=== PATIENT | female | born 1970 | race Caucasian/White ===

== ENCOUNTER 2017-05-20 13:35 | Outpatient (CLI) | payer OTHER | END 2017-05-20 13:36 | disposition home or self-care (01) | LOC: BICMAMMO 13:35 | PROVIDERS: ATTEND Family Medicine | DX: Z12.31 Encounter for screening mammogram for malignant neoplasm of breast (principal) | CPT/HCPCS: 77063; 77067 ==

== ENCOUNTER 2017-09-19 13:42 | Observation (INO) | payer OTHER ==
[~2017-09-19 13:42] MED LIST: ISOVUE-370 76%-LOCM 1 ML ONE
[2017-09-19 14:09] LABS: #Eosinphils 0.2 thou/uL (0.0-0.7); #Lymphocytes 1.9 thou/uL (1.20-3.40); #Monocytes 0.5 thou/uL (0.11-0.59); #Neutrophils 4.9 thou/uL (1.40-6.50); %Basophils 0.3 % (0.0-1.0); %Eosinophils 2.4 % (0.0-10.0); %Lymphocytes 25.3 % (21.0-51.0); %Monocytes 6.1 % (0.0-10.0); %Neutrophils 65.9 % (42.0-75.0); Hemoglobin 14.9 g/dL (12.0-16.0); Mean Corpuscular HGB CONC 35.7 g/dL (32.0-36.0); Mean Corpuscular Hemoglobin 32.1 pg (27.0-31.0); Mean Corpuscular Volume 89.7 fL (78.0-98.0); Mean Platelet Volume 7.6 fL (7.4-10.4); Platelet Count 178 thou/uL (130-400); RBC Distribution Width 12.3 % (11.5-14.5); Red Blood Cell (RBC) Count 4.64 mill/uL (4.20-5.40); White Blood Cell (WBC) Count 7.4 thou/uL (4.8-10.8)
[2017-09-19] MEDS ORDERED: Diltiazem HCl 125 MG, Admixture Fee 1 EACH in Sodium Chloride 0.9% 100 ML IVPB SCH (14:30)
[2017-09-19 14:31] LABS: ALT (SGPT) 19 U/L (8-55); AST (SGOT) 26 U/L (5-34); Albumin 3.9 g/dL (3.5-5.0); Alkaline Phosphatase 86 U/L (40-150); Anion Gap 13 mmol/L (10-20); BUN (Urea Nitrogen) 20 mg/dL (7.0-18.7); Bilirubin, Total 0.7 mg/dL (0.2-1.2); CK (CPK) 260 U/L (29-168); Calc. Creatinine Clearance 0 mL/min (70-130); Calcium 9.2 mg/dL (7.8-10.44); Carbon Dioxide 24 mmol/L (22-29); Chloride 104 mmol/L (98-107); Estimated GFR-MDRD 50; Globulin 3.6 g/dL (2.4-3.5); Glucose 318 mg/dL (70-105); Potassium 3.7 mmol/L (3.5-5.1); Protein, Total 7.5 g/dL (6.0-8.3); Sodium 137 mmol/L (136-145)
[2017-09-19 14:35] LABS: CKMB 2.9 ng/mL (0-6.6); Troponin I Less than 0.010 ng/mL (< 0.028)
--- NOTE | 2017-09-19 15:18 | CT ---
CTA CHEST WITH AND WITHOUT CONTRAST AND WITH 3D VOLUME RENDERING: INDICATION: Chest pain. FINDINGS: There is no evidence of a significant filling defect of the pulmonary arteries to indicate a pulmonar y embolus. There is mild patchy density of the lungs that likely related to respiratory motion artif act. No lobar consolidation, effusion, or pneumothorax. Thoracic aorta is nonaneurysmal. There is incompletely visualized incompletely assessed hypodensity at the medial right kidney. No acute osseo us abnormalities. There are scattered osseous degenerative changes. IMPRESSION: No evidence of a significant pulmonary embolus. POS: [facility]
[2017-09-19 17:22] LABS: Troponin I Less than 0.010 ng/mL (< 0.028)
[2017-09-19] MEDS ORDERED: Dextrose 5% in Water 1,000 ML IV PRN (17:35)
[2017-09-19] MEDS ORDERED: HumaLOG 300 UNITS/3 ML VIAL SC PRN (17:35)
[2017-09-19] MEDS ORDERED: Insulin Regular 300 UNITS/3 ML VIAL SC PRN (17:35)
[2017-09-19] MEDS ORDERED: Dextrose 50% Abboject 50 ML SYRINGE SLOW IVP PRN (17:35)
[2017-09-19 18:36] VITALS: BMI 48.2
[2017-09-19] MEDS: Sodium Chloride 0.9% 1,000 ML IV SCH (19:36)
[2017-09-19 20:29] LABS: Troponin I Less than 0.010 ng/mL (< 0.028)
[2017-09-19] MEDS: Metoprolol Tartrate 25 MG TAB PO SCH (20:33)
--- NOTE | 2017-09-19 20:56 | HP ---
DATE OF SERVICE: 09/19/2017 PRIMARY CARE PHYSICIAN: Lianna Dean MD CHIEF COMPLAINT: Palpitations. HISTORY OF PRESENT ILLNESS: This is a 46-year-old female with history of hypertension, who presents to the emergency room with palpitations. She reports after waking up at 7 this morning that her heart rate was high, measured at 137. She denies any prior history of this, denies any precipitates , and states that her heart was beating both fast and hard. She denies being short of breath, nauseous, or vomiting. Reports she took her usual dose of losartan at 7 this morning. Around 11 today, her blood pressure was still high. She took a second dose of losartan. The palpitations persisted and she came here. In addition to the palpitations, the patient had a headache and took some Aleve and she reports this has resolved. She also noticed sweating when she was walking a short distance across the house earlier today. In the emergency room, initial heart rate was 143. The patient was found to be in atrial flutter. After going to the bathroom, she converted into normal sinus rhythm. Hospitalist called for admission. The patient received 325 mg of aspirin. Diltiazem was ordered for her; however, this was held as she had converted to sinus rhythm. ALLERGIES: No known drug allergies. CURRENT MEDICATIONS: Losartan 100 mg once a day. PAST MEDICAL HISTORY: Hypertension. PAST SURGICAL HISTORY: 1. Cholecystectomy. 2. Tubal ligation. SOCIAL HISTORY: She is . Denies any alcohol or tobacco. Her surrogate decision makers are her mom, , daughter, and she is a FULL CODE. FAMILY HISTORY: Significant for hypertension and dad with coronary disease. REVIEW OF SYSTEMS: Positive for headache that responded to Aleve, palpitations as noted above. Negative for shortness of breath, nausea, vomiting, any change in bowel or bladder function. All remaining review of systems are reviewed and negative. PHYSICAL EXAMINATION: VITAL SIGNS: Blood pressure 114/70, pulse 86, respirations 16, saturations 94% on room air. GENERAL: Awake, alert, responsive, in no apparent distress, able to speak in full sentences. HEENT: Pupils equal and round. Oral mucosa is pink and moist. NECK: Supple, nontender. LYMPHATICS: No palpable cervical or supraclavicular lymphadenopathy. LUNGS: Clear to auscultation bilateral. No audible wheezing, rhonchi, or rales. HEART: Normal S1, S2. Regular rate and rhythm. No audible murmurs. ABDOMEN: Soft. Present bowel sounds. Nontender, nondistended. EXTREMITIES: No clubbing, cyanosis, or edema. SKIN: No visible rashes. NEUROLOGIC: No focal deficits. PSYCHIATRIC: Euthymic, linear, logical, goal-directed thought process. LABORATORY DATA: 1. CBC: 7.4, 14.9, 41.6, 178. 2. Chemistry: 137, 3.7, 104, 24, 20,1.18 with a glucose of 318. 3. LFTs are negative. 4. CK 260, MB 2.9. Troponin x2 negative. 5. TSH 1.49. EKG is personally reviewed at 1351, atrial flutter with a rate of 125. EKG at 1512 today, normal sinus rhythm, normal axis, normal intervals, no ST changes. CT angiogram was negative for any significant PE. IMPRESSION: 1. Paroxysmal atrial flutter, now converted into sinus rhythm without intervention. 2. Elevated blood sugar, concerning for new diagnosis of diabetes. 3. Slightly elevated creatinine in a patient on an ARB with an extra dose today at home in addition to an IV contrast study. PLAN: 1. Observation status in the hospital. 2. We will start low-dose beta demond with hold parameters to manage heart rate 3. Echocardiogram and Cardiology consultation. 4. Hold her ARB. IV fluid for hydration and recheck her renal function tomorrow. 5. Check a hemoglobin A1c and a.m. fasting blood sugar. A carbohydrate consistent diet and insulin sliding scale as needed. This will need to be followed up here in the hospital as well as with her primary care provider. 6. Monitoring on telemetry. 7. We will continue the low-dose aspirin, holding full anticoagulation as the patient is clear that the episode lasted less than 24 hours. Her CHAD2-VASC score is 2 (if new diagnosis of Diabetes = score of 4). 8. Deep venous thrombosis prophylaxis is not indicated. The patient is ambulatory. 9. Gastrointestinal prophylaxis is not indicated. 10. Code status is full and surrogate decision makers are mom, daughter, and . 11. Reviewed the plan of care with the patient. No questions or further needs at end of evaluation. MARLID
[2017-09-20] MEDS: Sodium Chloride 0.9% 1,000 ML IV SCH (05:13)
[2017-09-20 05:33] LABS: Anion Gap 11 mmol/L (10-20); BUN (Urea Nitrogen) 19 mg/dL (7.0-18.7); Calc. Creatinine Clearance 177 mL/min (70-130); Calcium 8.9 mg/dL (7.8-10.44); Carbon Dioxide 29 mmol/L (22-29); Chloride 103 mmol/L (98-107); Estimated GFR-MDRD 62; Glucose 121 mg/dL (70-105); Potassium 3.8 mmol/L (3.5-5.1); Sodium 139 mmol/L (136-145)
[2017-09-20] MEDS: Metoprolol Tartrate 25 MG TAB PO SCH (07:49)
[2017-09-20] MEDS ORDERED: Aspirin 81 mg Enteric Coated Tablet PO SCH (09:00)
--- NOTE | 2017-09-20 10:11 | PDOC.EVN ---
Event Note - Event Note Event Note: pt seen & examined h&p reviewed pt no further episodes of palpitations/ discomfort exam: s1,s2, no m/r/g, pulses 2+ b/l UE, no pitting pedal edema, no carotid bruits ctab, no conversational dyspnea, no w/r/r, reasonable air mvmt +bs, soft, non ttp maee, self repositions a/p a flutter pending ECHO apprec card c/s TSH wnl,A1c wnl obesity counseled re: lifestyle modifications dietary c/s elev Cr - resolved s/p hydration activity: as erica dvt ppx diet: diabetic,cardiac
--- NOTE | 2017-09-20 14:49 | CON ---
DATE OF CONSULTATION: 09/20/2017 HISTORY: Renu Myrick is a 46-year-old female who denies any previous palpitations or cardiac problems. Yesterday morning, she woke at approximately 7:00 a.m., felt her heart beating somewhat rapidly and had a headache. She notes her blood pressure was around 140/110 and her heart rate was 137. She took her blood pressure medicine and Aleve for the headache. This continued and she came to the emergency room. She states that around 3:00 p.m., this spontaneously went back to normal without any treatment being given in the emergency room. Cardizem had been ordered, but apparently was not given when she converted to sinus rhythm. She denies any shortness of breath or chest discomfort with the episode. PAST MEDICAL HISTORY: Hypertension. No history of diabetes or hypercholesterolemia. MEDICATION: Losartan 100 mg daily. ALLERGIES: None. OPERATIONS: Cholecystectomy and tubal ligation. SOCIAL HISTORY: She does not smoke or drink. FAMILY HISTORY: Mother and father as well as a sister have had myocardial infarctions. REVIEW OF SYSTEMS: Twelve-point review of systems is unremarkable except as noted above. PHYSICAL EXAMINATION: VITAL SIGNS: 121/67, pulse 71. HEENT: PERRL. NECK: Supple. LUNGS: Chest is clear. CARDIAC: S1, S2 normal without any S3, S4 or murmurs. ABDOMEN: Obese. Normal bowel sounds. No tenderness or organomegaly. EXTREMITIES: Revealed no clubbing, cyanosis or edema. NEUROLOGIC: Grossly intact. SKIN: Warm and dry. LABORATORY AND X-RAY FINDINGS: Initial EKG revealed atrial flutter with rate of 125 per minute with nonspecific ST changes. EKG after she converted revealed normal sinus rhythm. CBC is unremarkable. Sodium 139, potassium 3.8, chloride 103, carbon dioxide 29, BUN 19, creatinine 0.97. It is of note that glucose on admission was 318; however, hemoglobin A1c is 6.0. Cardiac enzymes are unremarkable. TSH is normal. IMPRESSION: 1. Atrial flutter, spontaneously converted to sinus rhythm after approximately 8 hours. 2. Hypertension. 3. Obesity. 4. Hyperglycemia. PLAN: Echocardiogram will be performed to assess left ventricular function. Electrophysiology will be consulted for consideration of radiofrequency ablation. KACEY
[2017-09-20 15:39] VITALS: BP 122/72; TEMP 97.9
--- NOTE | 2017-09-21 21:08 | CON ---
DATE OF CONSULTATION: 09/20/2017 ELECTROPHYSIOLOGY CONSULTATION REPORT REFERRING PHYSICIAN: Dr. Farley I am seeing Ms. Powell at our [facility] telemetry floor as an electrophysiology senior recruitment consultant. Her problems are: 1. Newly found persisting, but eventually staff terminated typical appearing atrial flutter with rapid ventricular rates. 2. No evidence of structural heart disease with 2D echo from 09/20/2017 reveals LVEF 50%-55%, mild left atrial enlargement, mild mitral and mild tricuspid regurgitation. 3. Coronary stenting, hypertension, and elevated BMI. ALLERGIES: None noted. MEDICATIONS: Losartan 100 mg daily. SUBJECTIVE: Mrs. Myrick is here due to sudden onset of palpitations at about 7 :00 a.m. on the day of admission. It was associated with headaches. Blood pressure was also elevated, heart rate dropped to 140 beats per minute. Pain medication improved the headache. She came to the ER and found to be in atrial flutter with rapid rates. She was ordered to have Cardizem, but she did not receive yet and she spontaneously converted back to sinus rhythm. She is maintaining normal rhythm. Her symptoms were resolved. She denies chest pains , no fever, chills, cough, no PND, orthopnea. No lower extremity edema. No stroke-like symptoms, no neurological deficits. No dizziness, loss of consciousness. Rest of twelve-point of systems otherwise unremarkable. PAST MEDICAL HISTORY: No prior history of heart disease or heart attacks. She does carry history of hypertension, taking losartan for that. No history of diabetes or hypercholesterolemia. SOCIAL HISTORY: Patient denies smoking, ETOH or drug abuse. FAMILY HISTORY: Noncontributory, although both sister and father and mother had heart attacks in the past. OBJECTIVE: VITAL SIGNS: Blood pressure is 127/78, heart rate 75, respiration is 18, temperature 97.8 degrees Fahrenheit. GENERAL: A well oriented woman in no apparent distress. NECK: Supple. Jugular veins are distended. CHEST: Coarse without crackles. CARDIOVASCULAR: Heart sounds are regular to rate and rhythm. No murmur or gallop. ABDOMEN: Benign. Bowel sounds positive. EXTREMITIES: Lower extremities without edema, clubbing or cyanosis. Pulses are adequate. NEUROLOGIC: Patient nonfocal. MUSCULOSKELETAL: No joint deformity. SKIN: Without rash. DATABASE: EKGs reviewed initially atrial flutter with rapid rate up to 140 beats per minute. Subsequent telemetry strips reveal improvement rate eventually sinus rhythm ensued narrow QRS, nonspecific ST-T changes are seen. LABORATORY DATA: White count 7.4, hemoglobin 14.9, platelet count is 178. Sodium 139, potassium 3.8, BUN is 19, creatinine 0.97. The troponin I is 0.[address] reveals no evidence of pulmonary embolus. ASSESSMENT AND PLAN: Ms. Powell is pleasant 46-year-old woman with history of hypertension, no other cardiac history. She presented with atrial flutter which based on the EKG morphology possibly typically isthmus dependent, but the episode was eventually self terminated without medication or intervention. Currently, she is maintaining regular rhythm. We discussed the mechanism of atrial flutter, potential contributing factors including hypertension, obesity. She also discussed the potential risk for stroke as such with this abnormality and her CHADS-VASc score of 2. At this point, the episode was relatively short lasting. Her BRYANT VASc score is lower. At this point, aspirin would be reasonable to continue. On the other hand, if further episodes of atrial fibrillation or flutter is seen, she might need to be continued on more potent oral anticoagulants, possibly one of the direct thrombin inhibitors. Also, it is reasonable to consider adding a heart rate lowering medication like metoprolol versus diltiazem could be considered. I would like to follow her in the office and should there be any further recurrence of atrial fibrillation or flutter, she might be a good candidate for ablation as well. At this point, she would like to continue medical therapy. I strongly advised her about the weight loss, hence obesity has a connection to recurrence of atrial fibrillation and weight loss would have reduce that. A routine follow up in the office in 6 weeks requested. Thank you again for allowing me to participate in the care of this patient. KACEY
== END 2017-09-20 16:38 | disposition home or self-care (01) ==
LOC: ERS 13:42 → 2SW 17:04 → INTOOBSV 17:04
PROVIDERS: ADMIT Family Medicine; ATTEND Family Medicine
DX: I48.92 Unspecified atrial flutter (principal); R73.9 Hyperglycemia, unspecified; E66.01 Morbid (severe) obesity due to excess calories; Z95.5 Presence of coronary angioplasty implant and graft; Z79.899 Other long term (current) drug therapy; Z68.45 Body mass index [BMI] 70 or greater, adult
CPT/HCPCS: 36415; 36416; 71275; 80048; 80053; 82550; 82553; 83036; 83880; 84443; 84484; 85025; 93005; 93306; 94760; 96360; 96361; G0378; J7050

== ENCOUNTER 2017-10-11 09:48 | Observation (INO) | payer OTHER ==
[2017-10-11] MEDS ORDERED: niCARdipine 20MG In NaCl 0 MG/0 ML BAG ONE (10:09)
[2017-10-11] MEDS ORDERED: Diltiazem 125 MG in Sodium Chloride 0.9% 100 ML IVPB SCH (10:30)
[2017-10-11] MEDS ORDERED: Fentanyl 100 MCG/2 ML VIAL ONE (10:31)
[2017-10-11 10:39] LABS: ALT (SGPT) 23 U/L (8-55); AST (SGOT) 30 U/L (5-34); Albumin 4.3 g/dL (3.5-5.0); Alkaline Phosphatase 104 U/L (40-150); Anion Gap 14 mmol/L (10-20); BUN (Urea Nitrogen) 20 mg/dL (7.0-18.7); Bilirubin, Total 1.8 mg/dL (0.2-1.2); Calc. Creatinine Clearance 0 mL/min (70-130); Calcium 9.5 mg/dL (7.8-10.44); Carbon Dioxide 23 mmol/L (22-29); Chloride 102 mmol/L (98-107); Estimated GFR-MDRD 53; Glucose 124 mg/dL (70-105); Potassium 3.6 mmol/L (3.5-5.1); Protein, Total 8.3 g/dL (6.0-8.3); Sodium 135 mmol/L (136-145)
[2017-10-11 10:44] LABS: #Eosinphils 0.1 thou/uL (0.0-0.7); #Monocytes 0.4 thou/uL (0.11-0.59); #Neutrophils 4.7 thou/uL (1.40-6.50); %Basophils 0.5 % (0.0-1.0); %Eosinophils 0.9 % (0.0-10.0); %Lymphocytes 16.4 % (21.0-51.0); %Neutrophils 76.2 % (42.0-75.0); Hemoglobin 15.5 g/dL (12.0-16.0); Mean Corpuscular HGB CONC 35.7 g/dL (32.0-36.0); Mean Corpuscular Hemoglobin 31.6 pg (27.0-31.0); Mean Corpuscular Volume 88.4 fL (78.0-98.0); Mean Platelet Volume 7.7 fL (7.4-10.4); Platelet Count 166 thou/uL (130-400); RBC Distribution Width 12.5 % (11.5-14.5); Red Blood Cell (RBC) Count 4.89 mill/uL (4.20-5.40); White Blood Cell (WBC) Count 6.1 thou/uL (4.8-10.8)
[2017-10-11 10:46] LABS: CKMB 1.5 ng/mL (0-6.6); Troponin I Less than 0.010 ng/mL (< 0.028)
[2017-10-11] MEDS ORDERED: Ondansetron HCl/PF 4 MG/2 ML Vial ONE (10:59)
--- NOTE | 2017-10-11 12:00 | RAD ---
PORTABLE UPRIGHT FRONTAL CHEST RADIOGRAPH: Date: 10-11-17 Comparison: None. History: Tachycardia with chest discomfort. FINDINGS: Cardiac silhouette is prominent. There is no pneumothorax, pleural fluid, focal consolidation, or devi eolar edema. IMPRESSION: No radiographic evidence of acute cardiopulmonary disease. POS: [facility]
[2017-10-11] MEDS ORDERED: Enoxaparin Sodium 60 MG/0.6 ML SYRINGE ONE (12:03)
[2017-10-11] MEDS ORDERED: Enoxaparin Sodium 100 MG/ML SYRINGE ONE (12:03)
[2017-10-11 12:52] VITALS: BMI 47.2
[2017-10-11 14:03] LABS: Troponin I Less than 0.010 ng/mL (< 0.028)
[2017-10-11] MEDS ORDERED: HumaLOG 300 UNITS/3 ML VIAL SC PRN ×2 (15:00)
[2017-10-11] MEDS ORDERED: Ondansetron HCl/PF 4 MG/2 ML Vial IVP PRN (15:00)
[2017-10-11] MEDS ORDERED: Dextrose 5% in Water 1,000 ML IV PRN (15:00)
[2017-10-11] MEDS ORDERED: Dextrose 50% Abboject 50 ML SYRINGE SLOW IVP PRN (15:00)
[2017-10-11] MEDS ORDERED: Acetaminophen 500 MG TAB PO PRN (15:00)
[2017-10-11] MEDS ORDERED: Ondansetron ODT 4 MG TAB PO PRN (15:00)
--- NOTE | 2017-10-11 15:56 | HP ---
DATE OF ADMISSION: 10/11/2017 PRIMARY CARE PHYSICIAN: Dr. Dean. CHIEF COMPLAINT: Shortness of breath and palpitations. HISTORY OF PRESENT ILLNESS: This is a 46-year-old female who presents to [facility] complaining of chest pain, shortness of breath, and palpitations which began approximately 8:0 0 a.m. on 10/11/2017. The patient had associated shortness of breath, dizziness, chest pain, and dis comfort which caused her to sit down and take a deep breath. The patient denied any recent trauma, i njury, fever, chills, cough or congestion. The patient's history is significant for recent admission to [facility] from 09/19/2017-09/20/2017 for paroxysmal atrial flutter with rapid ventricul ar response with spontaneous conversion. The patient was evaluated by the electrophysiology service during this admission with recommendations for conservative management, aspirin 81 mg daily and outpa tient followup. The patient states she was doing regular house chores when she developed symptoms as stated previously. The patient denies any smoking, alcohol use or significant caffeine intake. In the emergency room, the patient underwent general evaluation with EKG showing supraventricular tachyc ardia with heart rates in the 170s. Due to associated hypotension with this episode in presentation, the patient underwent mild sedation and electrical cardioversion. The patient converted to sinus me chanism and was transferred to the telemetry unit for further evaluation. PAST MEDICAL HISTORY: 1. Paroxysmal atrial flutter with rapid ventricular response. 2. Hypertension. 3. Diabetes mellitus type 2 on oral hypoglycemics, mild. PAST SURGICAL HISTORY: 1. Status post cholecystectomy. 2. Status post bilateral tubal ligation. CURRENT MEDICATIONS: 1. Losartan/HCTZ 100/12.5 mg p.o. daily. 2. Metformin 500 mg p.o. b.i.d. 3. Lipitor 40 mg p.o. daily. ALLERGIES: No known drug allergies. FAMILY HISTORY: Positive for hypertension in her father. SOCIAL HISTORY: The patient is , residing in [place], [place]. No current alcohol, tobacco or il licit drug use. Functional of all activities of daily living. REVIEW OF SYSTEMS: The following complete review of systems was negative, unless otherwise mentioned in the HPI or below: Constitutional: Weight loss or gain, ability to conduct usual activities. Skin: Rash, itching. Eyes: Double vision, pain. ENT/Mouth: Nose bleeding, neck stiffness, pain, tenderness. Cardiovascular: Palpitations, dyspnea on exertion, orthopnea. Respiratory: Shortness of breath, wheezing, cough, hemoptysis, fever or night sweats. Gastrointestinal: Poor appetite, abdominal pain, heartburn, nausea, vomiting, constipation, or diarrhea. Genitourinary: Urgency, frequency, dysuria, nocturia. Musculoskeletal: Pain, swelling. Neurologic/Psychiatric: Anxiety, depression. Allergy/Immunologic: Skin rash, bleeding tendency. PHYSICAL EXAMINATION: VITAL SIGNS: Currently, blood pressure 109/66, pulse 80, respiratory rate 18, temperature 97.5 degre es Fahrenheit, O2 saturation 96% on room air. GENERAL APPEARANCE: This is a 46-year-old female, alert and oriented x3, pleasant, conversant, in no acute distress. HEENT: Pupils are equal, round, and reactive to light and accommodation. Extraocular muscles are in tact. No scleral icterus. No conjunctival injection. Nares patent. OP is clear. Teeth in fair re pair. NECK: Supple, no cervical adenopathy, no thyromegaly, no carotid bruits, no JVD appreciated. Cervic al spine full active and passive range of motion. CHEST: Lungs are clear to auscultation bilaterally. CARDIOVASCULAR: S1, S2 without noted murmur, rub or gallop. ABDOMEN: Obese, soft, nontender, nondistended. Bowel sounds are positive in all four quadrants. Th ere is no hepatosplenomegaly, no abdominal bruits, no rebound or guarding appreciated. EXTREMITIES: Warm and dry with fair turgor. No clubbing, cyanosis or asymmetric edema appreciated. Pulses palpable distally at the dorsalis pedis, posterior tibial, and popliteal arteries bilaterally . Capillary refill less than 2 seconds. NEUROLOGIC: Cranial nerves II-XII are grossly intact. No focal or lateralizing signs appreciated. PERTINENT LABORATORY AND X-RAY FINDINGS: Sodium 135, potassium 3.6, chloride 102, CO2 23, BUN 20, cr eatinine 1.12, estimated GFR 53, glucose 124, calcium 9.5, magnesium 2.0. LFTs showed total bilirubi n 1.8, AST 30, ALT 23, alkaline phosphatase 104, troponin I negative x2. BNP 60, lipase 20. TSH 0.9 8. CBC within normal limits. Portable chest x-ray dated 10/11/2017 showed no acute cardiopulmonary process. A 2D transthoracic echocardiogram dated 09/20/2017 showed ejection fraction 50%-55%. Mild mitral and tricuspid valve regurgitation. EKG dated 10/11/2017 by my interpretation shows supraventr icular tachycardia with heart rates in the 170s. Normal R-wave progression noted in the precordial l zelalem. Normal axis. ASSESSMENT AND PLAN: 1. Supraventricular tachycardia. Suspect atrial flutter with rapid ventricular response. Status po st electrical cardioversion in the emergency room with return to sinus mechanism. 2. Recurrent episode of SVT. We will consult Electrophysiology Service for evaluation and considera tion for cardiac ablation. We will initiate metoprolol 12.5 mg p.o. b.i.d. Continue Lovenox 150 mg subcutaneously q.12 hours. 3. Chronic kidney disease stage 3. Avoid nephrotoxic agents and contrast media. Hold losartan. In itiate intravenous normal saline at 100 mL per hour. Repeat creatinine in the a.m. 4. Hypertension. We will initiate metoprolol 12.5 mg p.o. b.i.d. Hold home regimen of losartan/HCT Z. 5. Diabetes mellitus type 2. Continue insulin sliding scale for reflexive coverage. 6. Metformin 500 mg p.o. b.i.d. ADA diet. Serial Accu-Cheks before meals and at bedtime. 7. Prophylaxis. Sequential compression devices while in bed. Pepcid 20 mg p.o. b.i.d. 8. Code status: FULL. Surrogate medical decision maker is patient's spouse.
[2017-10-11] MEDS: Sodium Chloride 0.9% 1,000 ML IV SCH (16:13)
[2017-10-11 17:14] LABS: Troponin I Less than 0.010 ng/mL (< 0.028)
[2017-10-11] MEDS: metFORMIN 500 MG TAB PO SCH (20:53)
[2017-10-11] MEDS: Famotidine 20 MG TAB PO SCH (20:53)
[2017-10-11] MEDS: Metoprolol Tartrate 25 MG TAB PO SCH (20:53)
[2017-10-11] MEDS: Enoxaparin Sodium 60 MG/0.6 ML SYRINGE SC SCH (20:54)
[2017-10-11] MEDS ORDERED: Enoxaparin Sodium 100 MG/ML SYRINGE SC SCH (21:00)
--- NOTE | 2017-10-12 | CON ---
DATE OF CONSULTATION: 10/11/2017 This is an electrophysiology consultation report REFERRING PHYSICIAN: Denzel Lerner D.O. HISTORY OF PRESENT ILLNESS: I am seeing Ms. 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 Her problems are: 1. Recurrent atrial arrhythmias. A. Newly found atrial fibrillation with rapid rate requiring cardioversion today. B. Recent admission with atrial flutter, possibly typical isthmus-dependent in morphology. There is spontaneous cardioversion. 2. Structurally normal heart with echo on 09/20/2017 showing LVEF 50%-55%, mild MR, mild TR, mildly dilated left atrium. 3. Risk factors including morbid obesity, hypertension, type 2 diabetes. ALLERGIES: None noted. MEDICATIONS AT HOME: Losartan, metformin, Lipitor, and aspirin. SUBJECTIVE: Ms. Powell is here with recurrent palpitations started about 8:00 a.m. on 10/11/2017, associated shortness of breath, dizziness, chest pains were noted. She had some chest tightness sen sation, eventually came to the ER and she was evaluated there and was eventually cardioverted due to rapid rates. Also associated hypertension was noted. She is feeling much better after the cardiover emili. She has no associated fever, chills, or cough. No true angina, no dizziness, loss of consciou sness, no stroke-like symptoms. REVIEW OF SYSTEMS: Twelve point system otherwise unremarkable. PAST MEDICAL HISTORY: As above. SOCIAL HISTORY: Patient denies smoking, ETOH or drug abuse. FAMILY HISTORY: Noncontributory. PAST SURGICAL HISTORY: Significant for cholecystectomy and bilateral tubal ligation. OBJECTIVE DATA: VITAL SIGNS: Blood pressure is currently 125/78, heart rate 80, respiration is 18, temperature 97.9 degrees Fahrenheit. GENERAL: She is alert and oriented, morbid obese woman in no apparent distress. NECK: Supple. Jugular veins not distended. CHEST: Coarse without crackles. CARDIOVASCULAR: Heart sounds are regular rate and rhythm. No murmur or gallop. ABDOMEN: Benign. Bowel sounds positive. EXTREMITIES: Lower extremities without edema, clubbing or cyanosis. MUSCULOSKELETAL: No joint swelling or deformities. SKIN: Without rash. DATABASE: The EKGs reviewed. Current EKG reveal atrial fibrillation, rapid initially, not seeing th e typical flutter morphology as before. LABORATORY DATA: White count 6.1, hemoglobin 15.5, platelet count is 166. Sodium 135, potassium 3.6 , BUN is 14, creatinine was 1.12. Albumin and globulin is 4.3 and 4.0, AST and ALT is 30 and 23. ASSESSMENT AND PLAN: Ms. Powell is a pleasant 46-year-old woman with history of hypertension, mil d diabetes, morbid obesity who presents with a second episode of rapid atrial arrhythmias. Her curre nt morphology is more typical of atrial fibrillation and atrial flutter, which was noted in the previ ous episode. I began discussed treatment options, we detailed option of antiarrhythmic therapy versus primary abla tion approach to her high symptomatic atrial fibrillation. At this point, she would like to refrain from long-term antiarrhythmic therapy and hence her lack of significant structural heart disease, I t hink her prognosis would be likely to be benign with an ablation approach. I detailed the ablation p rocedure, which likely to be a pulmonary venous isolation procedure, possible right atrial flutter ab lation, also added to it. She understands the risk of infection, bleeding, stroke, esophageal damage , recurrence, tamponade and she is willing to proceed. It may be beneficial to perform the DOUG prior to the procedure. In the meantime, we will initiate enoxaparin, will hold it tomorrow. Thank you again for allowing me to participate in the care of this patient.
[2017-10-12] MEDS: Sodium Chloride 0.9% 1,000 ML IV SCH ×3 (01:44→22:15)
[2017-10-12] MEDS: Metoprolol Tartrate 25 MG TAB PO SCH ×2 (06:20→20:16)
[2017-10-12 06:43] LABS: Band 10 % (5-11); Eosinophils 2 % (0-10); Hemoglobin 12.7 g/dL (12.0-16.0); Lymphocytes 31 % (21-51); MDiff Complete? YES; Mean Corpuscular HGB CONC 35.1 g/dL (32.0-36.0); Mean Corpuscular Hemoglobin 31.5 pg (27.0-31.0); Mean Corpuscular Volume 89.7 fL (78.0-98.0); Mean Platelet Volume 7.7 fL (7.4-10.4); Monocytes 10 % (0-10); Neutrophil 46 % (42-75); PLT Morphology Comment Appears Adequate; Platelet Count 137 thou/uL (130-400); RBC Distribution Width 12.6 % (11.5-14.5); Red Blood Cell (RBC) Count 4.02 mill/uL (4.20-5.40); White Blood Cell (WBC) Count 3.7 thou/uL (4.8-10.8)
[2017-10-12 06:45] LABS: Anion Gap 11 mmol/L (10-20); BUN (Urea Nitrogen) 17 mg/dL (7.0-18.7); Calc. Creatinine Clearance 192 mL/min (70-130); Calcium 8.4 mg/dL (7.8-10.44); Carbon Dioxide 26 mmol/L (22-29); Chloride 105 mmol/L (98-107); Estimated GFR-MDRD 70; Glucose 95 mg/dL (70-105); Potassium 3.5 mmol/L (3.5-5.1); Sodium 138 mmol/L (136-145)
[2017-10-12] MEDS ORDERED: Atorvastatin Calcium 40 MG TAB PO SCH ×2 (09:00→21:00)
[2017-10-12 09:13] LABS: INR-International Normal Ratio 1.1; Prothrombin Time 14.2 SEC (12.0-14.7)
[2017-10-12 09:14] LABS: PTT 37.2 SEC (22.9-36.1)
[2017-10-12] MEDS: Enoxaparin Sodium 60 MG/0.6 ML SYRINGE SC SCH (09:26)
[2017-10-12] MEDS: metFORMIN 500 MG TAB PO SCH ×2 (09:27→20:24)
[2017-10-12] MEDS: Aspirin 81 mg Enteric Coated Tablet PO SCH (09:27)
[2017-10-12] MEDS: Famotidine 20 MG TAB PO SCH ×2 (09:27→20:16)
[2017-10-12] MEDS ORDERED: Isoproterenol 0.2 MG/1 ML AMP ONE ×3 (10:01→10:03)
[2017-10-12] MEDS ORDERED: Heparin 10,000 UNITS/1 ML VIAL ONE ×3 (10:01→15:13)
[2017-10-12] MEDS ORDERED: Midazolam HCl 2 mg/2 ml Vial ONE (10:49)
[2017-10-12] MEDS ORDERED: Fentanyl 100 MCG/2 ML VIAL ONE (10:49)
[2017-10-12] MEDS ORDERED: Propofol 500 MG/50 ML VIAL ONE (10:49)
[2017-10-12] MEDS ORDERED: Ketamine 50 MG/ML VIAL ONE (10:49)
[2017-10-12] MEDS ORDERED: Dexamethasone 20 MG/5 ML VIAL ONE (13:04)
[2017-10-12] MEDS ORDERED: Ondansetron HCl/PF 4 MG/2 ML Vial ONE (13:04)
[2017-10-12] MEDS ORDERED: Glycopyrrolate 0.2 MG/ML 5 ML SYRINGE ONE (13:04)
[2017-10-12] MEDS ORDERED: PHENYLEPHRINE-NS 100 MCG/ML 10 ML SYRINGE ONE (13:04)
[2017-10-12] MEDS ORDERED: PROPOFOL 200 MG/20 ML VIAL ONE (13:04)
[2017-10-12] MEDS ORDERED: Heparin 30,000 units/30 ml VIAL ONE (13:04)
[2017-10-12] MEDS ORDERED: Protamine Sulfate 50 MG/5 ML VIAL ONE (14:51)
[2017-10-12] MEDS ORDERED: Furosemide 40 MG/4 ML VIAL ONE (14:51)
[2017-10-12] MEDS ORDERED: Heparin 25,000 units/D5W 500 ML ONE (15:47)
--- NOTE | 2017-10-12 17:13 | PDOC.PN ---
- Subjective Encounter Start Date: 10/12/17 Encounter Start Time: 11:30 Subjective: pt up in bed no complains - Objective Resuscitation Status: Resuscitation Status FULL:Full Resuscitation Vital Signs & Weight: Vital Signs (12 hours) Temp Pulse Resp BP Pulse Ox 10/12/17 08:10 97.7 F 68 18 10/12/17 07:32 97.7 F 68 18 127/80 94 L Weight Weight 329 lb I&O: 10/11/17 10/12/17 10/13/17 06:59 06:59 06:59 Intake Total 1584 Output Total 800 Balance 784 Result Diagrams: 10/12/17 05:19 10/12/17 05:19 Additional Labs: Accuchecks 10/12/17 10/12/17 10/11/17 10:59 06:20 20:37 POC Glucose 93 101 141 H Phys Exam - Physical Examination HEENT: PERRLA, moist MMs, sclera anicteric, TM's clear, oral pharynx no lesions , 2+ tonsils Neck: no nodes, no JVD, supple, full ROM Respiratory: no wheezing, no rales, no rhonchi, wheezing present, clear to auscultation bilateral Cardiovascular: RRR, no significant murmur, no rub, gallop, irregular Gastrointestinal: soft, non-tender, no distention, positive bowel sounds Dx/Plan (1) SVT (supraventricular tachycardia) Code(s): I47.1 - SUPRAVENTRICULAR TACHYCARDIA Status: Acute (2) Diarrhea Code(s): R19.7 - DIARRHEA, UNSPECIFIED Status: Acute - Plan pt up in bed no complains -: she does complains of some diarrhea -: possible ablation today by EP * . Review of Systems - Review of Systems ENT: negative: Ear Pain, Ear Discharge, Nose Pain, Nose Discharge, Nose Congestion, Mouth Pain, Mouth Swelling, Throat Pain, Throat Swelling, Other Respiratory: negative: Cough, Dry, Shortness of Breath, Hemoptysis, SOB with Excertion, Pleuritic Pain, Sputum, Wheezing Cardiovascular: negative: chest pain, palpitations, orthopnea, paroxysmal nocturnal dyspnea, edema, light headedness, other Gastrointestinal: negative: Nausea, Vomiting, Abdominal Pain, Diarrhea, Constipation, Melena, Hematochezia, Other Genitourinary: negative: Dysuria, Frequency, Incontinence, Hematuria, Retention , Other - Medications/Allergies Allergies/Adverse Reactions: Allergies Allergy/AdvReac Type Severity Reaction Status Date / Time No Known Allergies Allergy Verified 10/11/17 13:17 Medications: Current Medications Acetaminophen (Tylenol) 1,000 mg PO Q6H PRN PRN Reason: Headache/Fever or Mild Pain Aspirin (Ecotrin) 81 mg PO DAILY [facility] Last Admin: 10/12/17 09:27 Dose: 81 mg Atorvastatin Calcium (Lipitor) 40 mg PO HS [facility] Dextrose/Water (Dextrose 50%) 25 gm SLOW IVP PRN PRN PRN Reason: Hypoglycemia Enoxaparin Sodium (Lovenox) 50 mg SC 0900,2100 [facility] Last Admin: 10/12/17 09:26 Dose: Not Given Famotidine (Pepcid) 20 mg PO BID [facility] Last Admin: 10/12/17 09:27 Dose: 20 mg Glucagon (Glucagon) 1 mg IM PRN PRN PRN Reason: Hypoglycemia Dextrose/Water (D5w) 1,000 mls @ 0 mls/hr IV .Q0M PRN; As Directed PRN Reason: Hypoglycemia Sodium Chloride (Normal Saline 0.9%) 1,000 mls @ 100 mls/hr IV .Q10H [facility] Last Admin: 10/12/17 12:13 Dose: Not Given Insulin Human Lispro (Humalog) 0 units SC .MILD SLIDING SCALE PRN PRN Reason: Mild Correctional Scale Insulin Human Lispro (Humalog) 0 units SC .BEDTIME SLIDING SC PRN PRN Reason: Bedtime Correctional Scale Metformin HCl (Glucophage) 500 mg PO BID [facility] Last Admin: 10/12/17 09:27 Dose: Not Given Metoprolol Tartrate (Lopressor) 12.5 mg PO BID [facility] Last Admin: 10/12/17 06:20 Dose: 12.5 mg Ondansetron HCl (Zofran Odt) 4 mg PO Q6H PRN PRN Reason: Nausea/Vomiting Ondansetron HCl (Zofran) 4 mg IVP Q6H PRN PRN Reason: Nausea/Vomiting
[2017-10-12] MEDS ORDERED: Acetaminophen/Codeine 30-300mg Tablet PO PRN (19:00)
[2017-10-12] MEDS: Acetaminophen/Codeine 30-300mg Tablet PO PRN (20:13)
--- NOTE | 2017-10-12 20:51 | ECHO ---
DATE OF SERVICE: 10/12/17 REASON FOR PROCEDURE: The patient is a 46-year-old woman with prior history of hypertension and morbid obesity. She has re current atrial arrhythmias with rapid rates requiring cardioversion in the ER yesterday. She also wa s anticoagulated with aspirin only and we are planning a pulmonary venous isolation procedure today. Here for cardioversion. PROCEDURE: The patient received propofol by Anesthesia specialist. After adequate sedation achieved, the standa rd transesophageal echogram probe was passed into the previous without difficulty. Patient tolerated procedure well, no complications noted. RESULTS: Left atrium is moderately enlarged about 4.9 cm in horizontal diameter. Left atrial appendage is well visualized and contains no clots. Four pulmonary veins were seen. Mitral valve has trivial to mild regurgitation. Left ventricular systolic function is preserved. Concentric left hypertrophy is noted. The right sided chambers are nondilated. Interatrial and interventricular septum is without obvious defect. Mild tricuspid regurgitation noted. Aortic valve has three leaflets without regurgitation or stenosis. Pulmonary valve appears to be normal. Pericardial space without effusion. The visualized portion of ascending and descending aorta without aneurysm, dissection or significant atheroma. CONCLUSION: 1. No intracardiac clots. 2. Normal left ventricular systolic function. 3. Mild left atrial enlargement. 4. Mild MR and TR is detected. PLAN: Proceed with the ablation.
[2017-10-12] MEDS ORDERED: Rivaroxaban 10 MG TAB PO SCH (21:00)
--- NOTE | 2017-10-12 22:40 | OP ---
DATE OF SERVICE: 10/12/2017 RADIOFREQUENCY ABLATION REPORT REFERRING PHYSICIAN: Dr. Denzel Lerner. REASON FOR PROCEDURE: Ms. Powell is a 46-year-old woman who has recurrent admissions for atrial f ibrillation with rapid rates requiring cardioversion on the current admission. Episodes are short an d DOUG prior to the procedure showed no intracardiac clots. She is anticoagulated with Lovenox. She is here for pulmonary venous isolation procedure for her high symptomatic atrial fibrillation episode s. PROCEDURE IN DETAIL: Patient received propofol and general anesthesia per Anesthesia specialist. Af ter adequate level of sedation achieved, the left and right femoral venous area was prepped, draped, anesthetized using subcutaneous lidocaine. With ultrasound guidance, the left and right femoral vein s were cannulated x4. Through an 11-Somali sheath via left groin, an ice catheter was advanced to th e right atrium and was used to monitor transseptal puncture and stress, rule out effusion at the end of the procedure. Through a left femoral venous access, a Process sheath was advanced to the IVC and through which a Du o-Decapolar catheter was advanced to the right atrium as well. A ThermoCool SF ST catheter was advan paty to the right atrium and 3D map of the right atrium was obtained. An attempt was made to place th e Duo-Decapolar catheter into the CS, but eventually we switched her to decapolar catheter, which was successfully cannulated the coronary sinus. Following that two SL1 sheaths were used to perform the transseptal puncture x2. Under ice and fluoroscopy monitoring. IV heparin was given and chec ked and to keep ACT over 350 throughout the procedure, the heparin was adjusted. Following that, the ThermoCool SF ST catheter was advanced to the left atrium and there also left cat heter was advanced to the left atrium via the transseptal sheath. A 3D map of the left atrium was ob tained, and we performed pulmonary venous isolation of all four pulmonary veins. The complete isolat ion achieved and Isuprel was administered 20 mcg per minute to induce reconnection. The re-corrected veins in the right inferior and left superior vein this area was re-ablated. Superior ablation line was also performed. Throughout the case, monitoring of the temperature was done when ablating on th e posterior wall to avoid thermal damage to the esophagus. Following that, the basic EP study was obtained. The ablation catheter was advanced to the left vent ricle and ventricular pacing demonstrated VA block. AV Wenckebach cycle length was 380 milliseconds. AV node ERP was 600/240 milliseconds and no dual AV ayah physiology was seen. The baseline measur ements were also measured 821 milliseconds, IN 121, QRS 77, QT3 of 82, AH 90 milliseconds, HV 59 mil liseconds measured. The total number of ablations were 52, the total duration of the ablation was 34.8 minutes. The 40 w atts was used throughout the case. The catheter sheaths were pulled back to the right side circulati on at that point. Protamine was given to reverse the heparin effect. Yesterday it was rechecked and the sheaths were pulled. Ice catheter was used to recheck for effusion, which was not found. Cardiac silhouette did not griffith e significantly throughout the case on fluoroscopy either suggest noticing effusion. Lasix 4 mg was given at the end of the case during his diuresis. CONCLUSION: 1. Successful pulmonary venous isolation procedure. 2. Normal AV ayah and His-Purkinje function. 3. Plan routine postoperative care. Resume anticoagulation with Xarelto, start tonight. 4. Routine postop followup also had Protonix and Carafate and Lasix/potassium as needed.
[2017-10-13] MEDS: Acetaminophen/Codeine 30-300mg Tablet PO PRN (00:46)
[2017-10-13] MEDS: Aspirin 81 mg Enteric Coated Tablet PO SCH (07:59)
[2017-10-13] MEDS: Famotidine 20 MG TAB PO SCH (07:59)
[2017-10-13] MEDS: Metoprolol Tartrate 25 MG TAB PO SCH (07:59)
[2017-10-13] MEDS: metFORMIN 500 MG TAB PO SCH (08:00)
[2017-10-13 08:04] VITALS: BP 118/62; TEMP 97.9
[2017-10-13] MEDS: Sodium Chloride 0.9% 1,000 ML IV SCH (08:25)
--- NOTE | 2017-10-13 09:27 | PRG ---
DATE OF SERVICE: 10/13/2017 SUBJECTIVE: Ms. Powell is doing really well one day after her pulmonary venous isolation procedur e. She has no signs of bleeding. She denies palpitations. No significant chest discomfort. No PND , orthopnea. No dyspnea at this time. OBJECTIVE: VITAL SIGNS: Blood pressure is 118/62, heart rate 74, respiration is 18, temperature 97.9 degrees Fa hrenheit. GENERAL: Alert and oriented, morbidly obese woman in no apparent distress. NECK: Supple. Jugular veins are difficult to visualize, but does not appear distended. CHEST: Coarse, no crackles. CARDIOVASCULAR: Heart sounds are regular to rate and rhythm. No murmur, gallop or rub. ABDOMEN: Benign. Bowel sounds positive. EXTREMITIES: Lower extremities without edema, clubbing or cyanosis. DATABASE: Telemetry strips reviewed revealing a sinus rhythm. No significant arrhythmias. ASSESSMENT AND PLAN: Ms. Powell is a pleasant 46-year-old woman with history of recurrent atrial arrhythmias which are severely symptomatic associated hypertension requiring emergent cardioversions on this admission to the ER. She opted for a primary ablation approach over anti-arrhythmics and she underwent a DOUG demonstrating no intracardiac clots followed by a pulmonary venous isolation procedu re which was performed successfully yesterday. She remained stable overnight. PLAN: 1. Routine post-ablation care. 2. Anticoagulation Xarelto to continue. 3. Add Pepcid or Protonix for acid control for at least 30 days. 4. Carafate 1 gram q.6 hours for 14 days. 5. Continue metoprolol at the current level. 6. Lasix p.r.n. with potassium prescription given. 7. Follow up requested. 8. At this point, likely we can stop aspirin.
--- NOTE | 2017-10-14 10:38 | DIS ---
DATE OF ADMISSION: 10/11/2017 DATE OF DISCHARGE: 10/13/2017 DISCHARGE DIAGNOSES: As of the followin. Recurrent atrial arrhythmia, status post ablation by Electrophysiology. 2. Diabetes. 3. Hypertension. 4. Obesity. HOSPITAL COURSE: The patient is a 46-year-old female, who initially presented to the hospital with c omplaints of shortness of breath and palpitations. The patient initially was cardioverted in the ER, was found to have supraventricular tachycardia in the heart rate of 170 and she was symptomatic. Th e patient then was seen by Electrophysiology and underwent an ablation. The patient was put on oral Xarelto and also on low dose of beta demond. The patient will follow up with PCP and also with Card iology as outpatient. HOME MEDICATIONS: As the following medications: Metformin 500 mg b.i.d., losartan/hydrochlorothiazi de 100/25 one p.o. daily, atorvastatin 40 mg daily, Carafate 1 gram p.o. q.i.d., Xarelto 20 mg at bed time, potassium chloride 20 mEq daily, Protonix 40 mg daily, Lopressor 12.5 b.i.d., Lasix 40 mg for 3 days. PHYSICAL EXAMINATION: VITAL SIGNS: Temperature of 97.7, pulse 74, respiratory rate 18, blood pressure 118/62. GENERAL: She is awake, alert, oriented x3, does not appear in any distress. CARDIOVASCULAR: S1, S2 present. No murmurs, rubs or gallops. ABDOMEN: Soft, nontender. Bowel sounds are present x2. EXTREMITIES: No edema. Pedal pulses are present x2. DISCHARGE INSTRUCTIONS: Again, she will be discharged home. She will follow up with PCP and EP as o utpatient.
--- NOTE | 2017-10-17 17:53 | EKG ---
Test Reason : PREOP Blood Pressure : / mmHG Vent. Rate : 067 BPM Atrial Rate : 067 BPM P-R Int : 170 ms QRS Dur : 106 ms QT Int : 426 ms P-R-T Axes : 045 005 019 degrees QTc Int : 450 ms Normal sinus rhythm Normal ECG When compared with ECG of 11-OCT-2017 10:50, (Unconfirmed) No significant change was found Confirmed by Phan BONILLA ([id number]) on 10/17/2017 5:53:40 PM Referred By: [facility] Confirmed By:Phan BONILLA
--- NOTE | 2017-10-17 23:00 | EKG ---
Test Reason : Blood Pressure : / mmHG Vent. Rate : 084 BPM Atrial Rate : 084 BPM P-R Int : 174 ms QRS Dur : 108 ms QT Int : 412 ms P-R-T Axes : 024 030 047 degrees QTc Int : 486 ms Normal sinus rhythm Prolonged QT Abnormal ECG When compared with ECG of 12-OCT-2017 09:20, (Unconfirmed) No significant change was found Confirmed by Phan BONILLA ([id number]) on 10/17/2017 10:59:31 PM Referred By: [facility] Confirmed By:Phan BONILLA
== END 2017-10-13 10:43 | disposition home or self-care (01) ==
LOC: ERS 09:48 → 2SW 12:22
PROVIDERS: ADMIT Family Medicine; ATTEND Family Medicine
DX: I47.1 Supraventricular tachycardia (principal); I12.9 Hypertensive chronic kidney disease with stage 1 through stage 4 chronic kidney disease, or unspecified chronic kidney disease; E11.22 Type 2 diabetes mellitus with diabetic chronic kidney disease; N18.3 Chronic kidney disease, stage 3 (moderate); E66.01 Morbid (severe) obesity due to excess calories; I08.1 Rheumatic disorders of both mitral and tricuspid valves; Z79.84 Long term (current) use of oral hypoglycemic drugs; Z98.890 Other specified postprocedural states; Z79.01 Long term (current) use of anticoagulants; Z79.899 Other long term (current) drug therapy; Z68.42 Body mass index [BMI] 45.0-49.9, adult
CPT/HCPCS: 36415; 36416; 71045; 76942; 80048; 80053; 82553; 83690; 83735; 83880; 84443; 84484; 85007; 85025; 85027; 85347; 85610; 85730; 93005; 93010; 93312; 93613; 93622; 93623; 93656; 93662; 96361; 96372; 96374; 96375; A4216; C1730; C1731; C1732; C1759; C1769; G0378; J1100; J1644; J1650; J1940; J2250; J2405; J2704; J2720; J3010; J3490; J7050

== ENCOUNTER 2017-11-23 14:36 | Emergency (ER) | payer OTHER ==
[2017-11-23 15:14] LABS: #Basophils 0.1 thou/uL (0.0-0.2); #Eosinphils 0.1 thou/uL (0.0-0.7); #Lymphocytes 2.3 thou/uL (1.20-3.40); #Monocytes 0.6 thou/uL (0.11-0.59); #Neutrophils 5.2 thou/uL (1.40-6.50); %Basophils 0.8 % (0.0-1.0); %Eosinophils 1.6 % (0.0-10.0); %Lymphocytes 27.5 % (21.0-51.0); %Monocytes 6.9 % (0.0-10.0); %Neutrophils 63.2 % (42.0-75.0); Hemoglobin 12.8 g/dL (12.0-16.0); Mean Corpuscular HGB CONC 35.7 g/dL (32.0-36.0); Mean Corpuscular Hemoglobin 32.4 pg (27.0-31.0); Mean Corpuscular Volume 90.9 fL (78.0-98.0); Mean Platelet Volume 7.6 fL (7.4-10.4); Platelet Count 223 thou/uL (130-400); RBC Distribution Width 12.9 % (11.5-14.5); Red Blood Cell (RBC) Count 3.96 mill/uL (4.20-5.40); White Blood Cell (WBC) Count 8.2 thou/uL (4.8-10.8)
[2017-11-23 16:02] LABS: Albumin 4.3 g/dL (3.5-5.0)
[2017-11-23 16:03] LABS: Chloride 103 mmol/L (98-107); Sodium 138 mmol/L (136-145)
[2017-11-23 16:04] LABS: Calcium 9.9 mg/dL (7.8-10.44)
[2017-11-23 16:05] LABS: Globulin 3.8 g/dL (2.4-3.5); Glucose 112 mg/dL (70-105); Protein, Total 8.1 g/dL (6.0-8.3)
[2017-11-23 16:06] LABS: Carbon Dioxide 25 mmol/L (22-29)
[2017-11-23 16:06] LABS: Bilirubin Negative (Negative); Blood, Urine Negative (Negative); Clarity CLEAR (Clear); Glucose, Urine (Dipstick) Negative (Negative); Leukocyte Negative (Negative); Nitrite Negative (Negative); Protein, Urine (Dipstick) Negative (Neg-Trace); Urobilinogen 0.2 mg/dL (0.2-1.0)
[2017-11-23 16:07] LABS: Alkaline Phosphatase 107 U/L (40-150); Bilirubin, Total 0.7 mg/dL (0.2-1.2)
[2017-11-23 16:08] LABS: Calc. Creatinine Clearance 0 mL/min (70-130); Estimated GFR-MDRD 61
[2017-11-23 16:09] LABS: BUN (Urea Nitrogen) 18 mg/dL (7.0-18.7)
[2017-11-23 16:10] LABS: AST (SGOT) 18 U/L (5-34)
[2017-11-23 16:11] LABS: ALT (SGPT) 13 U/L (8-55); Lipase 27 U/L (8-78)
[2017-11-23 16:21] LABS: Anion Gap 14 mmol/L (10-20)
== END 2017-11-23 16:15 | disposition home or self-care (01) ==
LOC: ERS 14:36
DX: K62.5 Hemorrhage of anus and rectum (principal); D68.8 Other specified coagulation defects; E11.9 Type 2 diabetes mellitus without complications; I48.91 Unspecified atrial fibrillation; E78.5 Hyperlipidemia, unspecified; I49.9 Cardiac arrhythmia, unspecified; Z79.01 Long term (current) use of anticoagulants; Z79.899 Other long term (current) drug therapy
CPT/HCPCS: 36415; 80053; 81003; 83690; 85025; 94760

== ENCOUNTER 2017-12-06 17:00 | Outpatient (CLI) | payer OTHER | END 2017-12-06 17:01 | disposition home or self-care (01) | LOC: SLEEPLAB 17:00 | PROVIDERS: ATTEND Family Medicine | DX: G47.33 Obstructive sleep apnea (adult) (pediatric) (principal); E11.9 Type 2 diabetes mellitus without complications; I10 Essential (primary) hypertension; E66.9 Obesity, unspecified; Z68.41 Body mass index [BMI] 40.0-44.9, adult | CPT/HCPCS: 95806 ==

== ENCOUNTER 2017-12-09 22:31 | Emergency (ER) | payer OTHER ==
[2017-12-09 23:15] LABS: Bilirubin Negative (Negative); Blood, Urine Large (Negative); Clarity CLEAR (Clear); Glucose, Urine (Dipstick) Negative (Negative); Leukocyte Moderate (Negative); Nitrite Negative (Negative); Protein, Urine (Dipstick) Negative (Neg-Trace); Specific Gravity, Urine 1.022 (1.002-1.036); Urobilinogen 0.2 mg/dL (0.2-1.0); pH, Urine 5.5 (5.0-9.0)
[2017-12-09 23:17] LABS: Bacteria/HPF None Seen HPF (None Seen); Hyaline Casts/LPF 4-6 HYALINE CAST LPF (0-3 Hyaline); Pathc Cast-AUWi Flag 1.01 (0-2.49); RBC/HPF GREATER THAN 50-TNTC HPF (0-3); Squamous Epithelial 0-3 HPF (0-3)
[2017-12-10 00:08] LABS: #Eosinphils 0.1 thou/uL (0.0-0.7); #Monocytes 0.5 thou/uL (0.11-0.59); #Neutrophils 9.1 thou/uL (1.40-6.50); %Basophils 0.2 % (0.0-1.0); %Eosinophils 1.3 % (0.0-10.0); %Lymphocytes 16.8 % (21.0-51.0); %Monocytes 4.4 % (0.0-10.0); %Neutrophils 77.3 % (42.0-75.0); Hemoglobin 13.2 g/dL (12.0-16.0); Mean Corpuscular HGB CONC 34.5 g/dL (32.0-36.0); Mean Corpuscular Volume 89.9 fL (78.0-98.0); Mean Platelet Volume 7.6 fL (7.4-10.4); Platelet Count 250 thou/uL (130-400); RBC Distribution Width 12.6 % (11.5-14.5); Red Blood Cell (RBC) Count 4.27 mill/uL (4.20-5.40); White Blood Cell (WBC) Count 11.8 thou/uL (4.8-10.8)
[2017-12-10] MEDS ORDERED: Morphine 4 MG/ML VIAL ONE (00:09)
[2017-12-10 00:29] LABS: ALT (SGPT) 16 U/L (8-55); AST (SGOT) 22 U/L (5-34); Albumin 4.5 g/dL (3.5-5.0); Alkaline Phosphatase 122 U/L (40-150); Anion Gap 17 mmol/L (10-20); BUN (Urea Nitrogen) 23 mg/dL (7.0-18.7); Bilirubin, Total 0.9 mg/dL (0.2-1.2); Calc. Creatinine Clearance 0 mL/min (70-130); Calcium 9.7 mg/dL (7.8-10.44); Carbon Dioxide 22 mmol/L (22-29); Chloride 102 mmol/L (98-107); Estimated GFR-MDRD 46; Globulin 4.1 g/dL (2.4-3.5); Glucose 157 mg/dL (70-105); Lipase 34 U/L (8-78); Potassium 3.8 mmol/L (3.5-5.1); Protein, Total 8.6 g/dL (6.0-8.3); Sodium 137 mmol/L (136-145)
[2017-12-10 00:45] LABS: Pregnancy Test - Urine (BHCG) Negative (Negative); Pregu Control Background? CLEAR/WHITE (CLR/WHITE); Pregu Control Bar Appear? YES (CONTROL BAR)
[2017-12-10 00:46] LABS: Specific Gravity 1.022 (1.002-1.036)
[2017-12-10] MEDS ORDERED: Acetaminophen 325 MG TAB ONE (03:22)
[2017-12-10] MEDS ORDERED: Lidocaine 2% PF 5 ML VIAL ONE (03:40)
[2017-12-10] MEDS ORDERED: cefTRIAXone\\ROCEPHIN 1 GM VIAL ONE (03:40)
--- NOTE | 2017-12-10 07:55 | ULT ---
PRELIMINARY REPORT/[facility]/EMERGENTY AFTER-HOURS PROCEDURE US Pelvis Complete, Transabdominal US Pelvis, Transvaginal CLINICAL HISTORY: 46 years old, female; Pain and signs and symptoms; Menstruation abnormalities; Excessive menstruation ; In the premenopausal period; Pelvic pain; Patient HX: Patient states no period for 3 to 4 years, no w bleeding heavy with clots x 8 days, n/v/d TECHNIQUE: Real-time transabdominal and transvaginal pelvic ultrasound (complete) with image documentation. Lisa svaginal imaging was used for better evaluation of the endometrium and adnexa. COMPARISON: No relevant prior studies available. FINDINGS: Uterus/cervix: There is a solid mass in the lower uterine segment of the uterus but appears to be int ramural uterine fibroid measuring a maximum of 4.9 cm. There appear to be nabothian cysts of the cerv ix. The endometrial stripe is not clearly visualized. The uterus measures 10.9 x 4.3 x 6.7 cm. Right ovary: There is a questionable right ovarian cyst but poorly seen. The right ovary measures 2.2 x 2.4 x 2.1 cm but poorly seen because of the bulky uterus and ovarian blood flow could not be deter mined as a result. Left ovary: Not visualized. Free fluid: No free fluid. Bladder: Unremarkable as visualized. Wall is normal thickness for degree of distention. IMPRESSION: 1. There is a solid mass in the lower uterine segment of the uterus but appears to be intramural uter ine fibroid measuring a maximum of 4.9 cm. 2. There is a questionable right ovarian cyst but poorly seen. Thank you for allowing us to participate in the care of your patient. Dictated and Authenticated by: Rex Tamez MD 12/10/2017 2:31 AM Central Time ([place] & [place]) FINAL REPORT SONOGRAPH PELVIS TRANSABDOMINAL AND TRANSVAGINAL IMAGING WITH DUPLEX EVALUATION: DATE: 12/10/17. TIME: Performed on the emergency basis at 0054 hours. HISTORY: Pelvic pain. Dysmenorrhea. FINDINGS: Agree with the preliminary report by Dr. Saravia from [facility]. Probable fibroid of the lowe r uterine segment measures up to 4.9 cm. Ovaries not well visualized. See report from subsequently performed CT abdomen/pelvis. POS: [facility]
--- NOTE | 2017-12-10 07:57 | CT ---
PRELIMINARY REPORT/[facility]/EMERGENTY AFTER-HOURS PROCEDURE CT Abdomen and Pelvis With Intravenous Contrast CLINICAL HISTORY: 46 years old, female; Pain; Abdominal pain; Flank; Right lower quadrant (rlq); Patient HX: This is a 46 yo f who comes in complaining of rlq pain. Started at 5 pm and has gotten progressively worse, con stant, nothing makes it better or worse. She states started menopause 3 years ago and had onset of menses once again three days ago. She has not tried anything at home for pain. Denies fevers, chil ls, or sweats. She states she has had 2 episodes of diarrhea today and did note blood in the stool. H as had nausea and decreased appetite TECHNIQUE: Axial computed tomography images of the abdomen and pelvis with intravenous contrast. Coronal reformatted images were created and reviewed. COMPARISON: [facility] 12/10/2017 12:46 AM FINDINGS: Lung bases: Unremarkable. No mass. No consolidation. ABDOMEN: Liver: There is hepatomegaly. Gallbladder and bile ducts: There are postoperative changes of cholecystectomy. No ductal dilation. Pancreas: Unremarkable. No mass. No ductal dilation. Spleen: There is splenomegaly. Adrenals: Unremarkable. No mass. Kidneys and ureters: There is a simple appearing cyst of the right kidney measuring 4.2 cm. No hydron ephrosis. Stomach and bowel: Unremarkable. No obstruction. No mucosal thickening. PELVIS: Appendix: The appendix is unremarkable and seen best on axial image 75 of series 2. Bladder: Unremarkable. No mass. Reproductive: There may be a right ovarian cyst measuring 2.0 cm. Limited evaluation without sagittal reconstructed images, but the mass lesion seen on ultrasound appears to be centrally positioned exte nding from the uterine fundus down to the lower uterine segment and may measure 6.8 x 3.7 x 7.0 cm, c annot exclude endometrial neoplasm, the CT appearance is less consistent with uterine fibroid but ana t possibility is not completely excluded. Given the poor visibility on ultrasound, this mass may be m ore accurately evaluated with pelvic MRI without and with IV gadolinium on a nonemergent basis. The left ovary appears unremarkable. ABDOMEN and PELVIS: Intraperitoneal space: Unremarkable. No free air. No significant fluid collection. Bones/joints: No acute fracture. No dislocation. Soft tissues: Unremarkable. Vasculature: Unremarkable. No abdominal aortic aneurysm. Lymph nodes: Unremarkable. No enlarged lymph nodes. IMPRESSION: 1. There may be a right ovarian cyst measuring 2.0 cm. 2. Limited evaluation without sagittal reconstructed images, but the mass lesion seen on ultrasound a ppears to be centrally positioned extending from the uterine fundus down to the lower uterine segment and may measure 6.8 x 3.7 x 7.0 cm, cannot exclude endometrial neoplasm, the CT appearance is less c onsistent with uterine fibroid but that possibility is not completely excluded. Given the poor visibi lity on ultrasound, this mass may be more accurately evaluated with pelvic MRI without and with IV ga dolinium on a nonemergent basis. Thank you for allowing us to participate in the care of your patient. Dictated and Authenticated by: Rex Tamez MD 12/10/2017 2:42 AM Central Time ([place] & [place]) FINAL REPORT CT ABDOMEN AND PELVIS WITH ORAL AND IV CONTRAST: Date: 12/09/17 FINDINGS/IMPRESSION: I agree with the preliminary report given by Maddie. POS: [facility]
== END 2017-12-10 03:49 | disposition home or self-care (01) ==
LOC: ERS 22:31
DX: N85.8 Other specified noninflammatory disorders of uterus (principal); I48.91 Unspecified atrial fibrillation; E11.9 Type 2 diabetes mellitus without complications; E78.5 Hyperlipidemia, unspecified; I10 Essential (primary) hypertension; Z79.01 Long term (current) use of anticoagulants; Z79.899 Other long term (current) drug therapy; Z79.84 Long term (current) use of oral hypoglycemic drugs
CPT/HCPCS: 36415; 74177; 76856; 80053; 81003; 81015; 81025; 83690; 85025; 96361; 96372; 96374; J0696; J2001; J2270

== ENCOUNTER 2017-12-13 19:41 | Inpatient (IN) | payer OTHER ==
[2017-12-13 20:42] LABS: %Basophils 0.5 % (0.0-1.0); %Eosinophils 1.1 % (0.0-10.0); %Lymphocytes 19.8 % (21.0-51.0); %Monocytes 6.6 % (0.0-10.0); %Neutrophils 72.1 % (42.0-75.0); Hemoglobin 10.7 g/dL (12.0-16.0); Mean Corpuscular HGB CONC 33.6 g/dL (32.0-36.0); Mean Corpuscular Hemoglobin 30.7 pg (27.0-31.0); Mean Corpuscular Volume 91.5 fL (78.0-98.0); Mean Platelet Volume 7.6 fL (7.4-10.4); Platelet Count 319 thou/uL (130-400); RBC Distribution Width 12.9 % (11.5-14.5); Red Blood Cell (RBC) Count 3.49 mill/uL (4.20-5.40); White Blood Cell (WBC) Count 13.8 thou/uL (4.8-10.8)
[2017-12-13 20:43] LABS: #Basophils 0.1 thou/uL (0.0-0.2); #Eosinphils 0.2 thou/uL (0.0-0.7); #Lymphocytes 2.7 thou/uL (1.20-3.40); #Monocytes 0.9 thou/uL (0.11-0.59)
[2017-12-13 21:15] LABS: ALT (SGPT) 19 U/L (8-55); AST (SGOT) 22 U/L (5-34); Albumin 4.4 g/dL (3.5-5.0); Alkaline Phosphatase 106 U/L (40-150); Anion Gap 12 mmol/L (10-20); BUN (Urea Nitrogen) 22 mg/dL (7.0-18.7); Bilirubin, Total 0.6 mg/dL (0.2-1.2); Calc. Creatinine Clearance 0 mL/min (70-130); Calcium 9.3 mg/dL (7.8-10.44); Carbon Dioxide 28 mmol/L (22-29); Chloride 101 mmol/L (98-107); Estimated GFR-MDRD 31; Globulin 3.6 g/dL (2.4-3.5); Glucose 139 mg/dL (70-105); Potassium 3.7 mmol/L (3.5-5.1); Sodium 137 mmol/L (136-145)
[2017-12-13 21:32] LABS: INR-International Normal Ratio 1.7; Prothrombin Time 20.2 SEC (12.0-14.7)
--- NOTE | 2017-12-13 22:25 | CON ---
DATE OF SERVICE: 12/13/2017 ADMITTING PHYSICIAN: [facility]. CONSULTING PHYSICIAN: Prince Valdivia M.D. for [facility]. REASON FOR CONSULTATION: Bleeding with anemia and abnormal CT and ultrasound of the uterus. HISTORY OF PRESENT ILLNESS: Ms. Andre Myrick is a 46-year-old 3, para 3, LMP prior to s everal weeks ago was approximately 3 years ago who presents with persistent menstrual bleeding. The patient had some shortness of breath today and was brought in for her vaginal bleeding. Of note, she also has a significant medical morbidity. 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 The patient reports cessation of menses about 3 years ago until she started bleeding about 6 weeks ago. She is status post BTL. She does not have a family history of gynecolo gic malignancy. PAST MEDICAL HISTORY: History of hypertension, type 2 diabetes, atrial fibrillation, and anticoagula tion post-afib ablation in October. Of note, the patient's atrial fibrillation seems to have resolved on EKG. She reports no symptoms of atrial fibrillation at home. PAST SURGICAL HISTORY: Tubal ligation and cardiac ablation. ALLERGIES: Denies. MEDICATIONS: Metformin, losartan, hydrochlorothiazide, atorvastatin, metoprolol and Xarelto. SOCIAL HISTORY: Denies tobacco, alcohol, or drug use. REVIEW OF SYSTEMS: Noncontributory. PHYSICAL EXAMINATION: GENERAL: White female, resting comfortably in bed, pulse of 98, respirations 18, blood pressure 118/ 72. HEENT: Within normal limits. Limited exam. ABDOMEN: Soft, nontender, without rebound or guarding. She has blood on the perineum. Pelvic exam is deferred. EXTREMITIES: Without clubbing, cyanosis or edema. PELVIC: By report last week revealed no lesions. LABORATORY STUDIES: Hematocrit is 32%. PT is elevated at 20.2. The patient's creatinine is noted t o be 1.7, which is higher than it was several days ago, otherwise unremarkable. Radiologic scans from previous visit 4 days ago reveals either an endometrial mass that could be a fi broid or possible neoplasm. Ultrasound pictures were suboptimal and not really revealing of distingui shing between endometrial thickening versus fibroid. IMPRESSION: Obese patient anticoagulated with menorrhagia. PLAN: We will continue consultation begin Lysteda and Provera 20 mg b.i.d. Anticipate endometrial s ampling in hospital prior to discharge with followup of results. If patient has a nonmalignant condi tion, would be an appropriate candidate for total laparoscopic hysterectomy with da Shoshana versus refe rral to Gynecologic Oncology for malignancy.
[2017-12-13 22:37] LABS: Clarity Cloudy (Clear)
[2017-12-13 22:38] LABS: Bacteria/HPF Rare-Few HPF (None Seen); Bilirubin Negative (Negative); Blood, Urine Large (Negative); Glucose, Urine (Dipstick) Negative (Negative); Leukocyte Negative (Negative); Nitrite Negative (Negative); Protein, Urine (Dipstick) 300 mg/dL (Neg-Trace); RBC/HPF GREATER THAN 50-TNTC HPF (0-3); Specific Gravity, Urine 1.011 (1.002-1.036); Squamous Epithelial 0-3 HPF (0-3); Urobilinogen 0.2 mg/dL (0.2-1.0); WBC/HPF 0-3 HPF (0-3)
[2017-12-13 22:39] LABS: Crystals/HPF None Seen HPF (Negative); Hyaline Casts/LPF 0-3 HYALINE CAST LPF (0-3 Hyaline)
[2017-12-13] MEDS ORDERED: Ondansetron HCl/PF 4 MG/2 ML Vial IVP PRN (22:48)
[2017-12-13 23:09] VITALS: BMI 46.7
[2017-12-13] MEDS: medroxyPROGESTERone Acetate 5 MG TAB PO SCH (23:36)
[2017-12-14 05:22] LABS: #Basophils 0.1 thou/uL (0.0-0.2); #Eosinphils 0.2 thou/uL (0.0-0.7); #Lymphocytes 3.1 thou/uL (1.20-3.40); #Monocytes 0.6 thou/uL (0.11-0.59); #Neutrophils 6.3 thou/uL (1.40-6.50); %Basophils 0.5 % (0.0-1.0); %Eosinophils 1.5 % (0.0-10.0); %Lymphocytes 30.2 % (21.0-51.0); %Monocytes 6.2 % (0.0-10.0); %Neutrophils 61.6 % (42.0-75.0); Hemoglobin 8.6 g/dL (12.0-16.0); Mean Corpuscular HGB CONC 33.4 g/dL (32.0-36.0); Mean Corpuscular Hemoglobin 30.6 pg (27.0-31.0); Mean Corpuscular Volume 91.6 fL (78.0-98.0); Platelet Count 241 thou/uL (130-400); RBC Distribution Width 12.8 % (11.5-14.5); White Blood Cell (WBC) Count 10.2 thou/uL (4.8-10.8)
[2017-12-14] MEDS ORDERED: Acetaminophen 325 MG TAB PO PRN (05:36)
[2017-12-14 05:41] LABS: Anion Gap 8 mmol/L (10-20); BUN (Urea Nitrogen) 23 mg/dL (7.0-18.7); Calc. Creatinine Clearance 89 mL/min (70-130); Calcium 8.6 mg/dL (7.8-10.44); Carbon Dioxide 30 mmol/L (22-29); Chloride 102 mmol/L (98-107); Estimated GFR-MDRD 30; Glucose 127 mg/dL (70-105); Potassium 3.2 mmol/L (3.5-5.1); Sodium 137 mmol/L (136-145)
--- NOTE | 2017-12-14 07:38 | PRG ---
DATE OF SERVICE: 12/14/2017 TIME OF SERVICE: 0715 The patient is resting comfortably. She has no complaints. She states that while she is still havin g some vaginal bleeding, it has decreased significantly on Provera and Lysteda. She denies chest dominic n or shortness of breath. PHYSICAL EXAMINATION: VITAL SIGNS: Pulse is 103, temperature 97.7, blood pressure 107/59, respirations 18, O2 sats 97% on room air. ABDOMEN: Soft and nontender, without rebound or guarding. : Perineum reveals a mild amount of menstrual flow. EXTREMITIES: Without clubbing, cyanosis or edema. LABORATORY STUDIES: Hematocrit; overnight hematocrit went from 32 to 26%. 26% is more consistent wi th the patient's initial presentation to the ER that was likely a higher hematocrit at that time due to hemoconcentration. IMPRESSION: Dysfunctional uterine bleeding with thickened endometrium on Eliquis for atrial fibrilla tion, now 2 months status post ablation with no evidence of persistent arrhythmia. PLAN: Continue Lysteda and Provera. Anticipate decrease in flow off of Eliquis. We will discuss [facility] Cardiology leaving the patient off of Eliquis for the time being as the patient needs endometrial biopsy, pathology, and likely hysterectomy, benign versus malignant condition. Dr. Edward Bravo is the consulting tile edger and will discuss with her.
[2017-12-14] MEDS ORDERED: Losartan/Hydrochlorothiazide 100 mg/25 mg Tablet PO SCH (09:00)
[2017-12-14] MEDS: Fish Oil 1,000 MG CAP PO SCH (10:02)
[2017-12-14] MEDS: Atorvastatin Calcium 40 MG TAB PO SCH (10:02)
[2017-12-14] MEDS: Metoprolol Tartrate 25 MG TAB PO SCH ×2 (10:03→21:08)
[2017-12-14] MEDS ORDERED: Dextrose 5% in Water 1,000 ML IV PRN (12:29)
[2017-12-14] MEDS ORDERED: HumaLOG 300 UNITS/3 ML VIAL SC PRN (12:29)
[2017-12-14] MEDS ORDERED: Dextrose 50% Abboject 50 ML SYRINGE SLOW IVP PRN (12:29)
[2017-12-14] MEDS ORDERED: Sodium Chloride 0.9% 250 ML 250 ML IVPB SCH (12:30)
[2017-12-14] MEDS: Sodium Chloride 0.9% 1,000 ML IV SCH (12:38)
[2017-12-14 12:58] LABS: Hemoglobin 8.3 g/dL (12.0-16.0)
[2017-12-14] MEDS ORDERED: Potassium Chloride 20 MEQ TAB PO SCH (13:00)
--- NOTE | 2017-12-14 13:09 | HP ---
DATE OF ADMISSION: 12/14/2017 PRIMARY CARE PROVIDER: Lianna Dean M.D. CHIEF COMPLAINT: Vaginal bleeding. HISTORY OF PRESENT ILLNESS: Ms. Andre Myrick is a pleasant 46-year-old lady who was seen at [facility] on 12/14/2017. She has a history of atrial fibrillation for which she underwent ablation and is currently on anticoagulation with rivaroxaban. She reports that since age 43, she has not had any periods. She started having vaginal bleeding since 12/01/2017. She was referred to see [facility]CA[facility]ATOR OPERATOR service as outpatient. Before she could make the appointment, she developed severe abdominal pain 5 days ago and was seen in the emergency room. She reports that her blood counts were fine and she was discharged home to follow with EXCAVATOR OPERATOR as outpatient, and it appears that that appointment is on 12/22/2017. Starting yesterday evening, the vaginal bleeding worsened. She reports having multiple episodes of heavy bleeding. She therefore came to the emergency room. She denies any chest pain or shortness of breath. She does report feeling lightheaded this morning. She denies any abdominal pain. She denies any fevers or chills. She was also found to have a 5 cm intramural fibroid when she was seen in the emergency room 5 days ago. REVIEW OF SYSTEMS: All other systems reviewed and found to be negative. PAST MEDICAL HISTORY: Atrial fibrillation, diabetes mellitus type 2, dyslipidemia, hypertension and intramural fibroid. PAST SURGICAL HISTORY: Cholecystectomy, tubal ligation and cardiac ablation. SOCIAL HISTORY: The patient denies tobacco use, alcohol use or recreational drug use. ALLERGIES: No known drug allergies. CURRENT MEDICATIONS: Include metformin 500 mg 2 times a day, losartan/ hydrochlorothiazide 100/25 mg daily, atorvastatin 40 mg daily, metoprolol tartrate 12.5 mg 2 times a day, rivaroxaban 20 mg daily, tramadol 50 mg every 6 hours as needed. FAMILY HISTORY: No family history of premature coronary artery disease. PHYSICAL EXAMINATION: GENERAL: Ms. Andre Myrick is awake and alert, not in acute distress. She is morbidly obese, with a BMI of 46.7. VITAL SIGNS: Blood pressure is 125/80, pulse 105, respiratory rate 18 and oxygen saturation 97% on room air. She is afebrile. EYES: No scleral icterus. She has conjunctival pallor. ENT: Moist mucosal membranes. No oropharyngeal erythema or exudates. NECK: Supple, nontender, trachea is midline. RESPIRATORY: Accessory muscles of breathing are not active. Chest wall movements are symmetric bilaterally. LUNGS: Clear to auscultation without wheeze, rhonchi or crepitations. CARDIOVASCULAR: S1 and S2 are heard, regular and tachycardic. Peripheral pulses palpable. No carotid bruit, no pericardial rub. ABDOMEN: Soft, nontender, bowel sounds are heard, no hepatomegaly, no splenomegaly. NEUROLOGIC: Cranial nerves II-XII intact. Deep tendon reflexes are 2+. SKIN: No rashes or subcutaneous nodules. MUSCULOSKELETAL: Power is 5/5 in all 4 extremities. LYMPHATIC: No cervical lymphadenopathy. PSYCHIATRIC: Normal mood, normal affect, the patient is oriented to person, place and time. LABORATORY DATA: Ms. Andre Myrick' labs and investigations were reviewed. She had a 12-lead electrocardiogram, which shows sinus tachycardia, no ST changes to suggest an acute coronary syndrome. She has normal white count, hemoglobin 8.6 today, decreased from 10.7 yesterday, normal platelet count. INR of 1.7, normal sodium, decreased potassium of 3.2, elevated blood urea nitrogen of 23, elevated creatinine of 1.81, her creatinine was 1.27 on 2017 and 0.99 on 11/23/2017, normal calcium, unremarkable liver profile and urinalysis positive for blood. ASSESSMENT AND PLAN: Ms. Andre Myrick is a pleasant 46-year-old lady who was seen at [facility] on 11/14/2017. Her problem list includes: 1. Symptomatic anemia: She is presenting with symptomatic anemia secondary to vaginal bleeding. She will be admitted to the hospital for further management including rechecking her hemoglobin and transfusing as needed. 2. Vaginal bleeding: EXCAVATOR OPERATOR Service has been consulted for opinion and help with management. Rivaroxaban has been held for now. 3. Acute renal insufficiency: Likely prerenal secondary to blood loss. I will provide IV hydration and recheck her creatinine. We will hold the hydrochlorothiazide, losartan and metformin for now. 4. Diabetes mellitus type 2: Start Accu-Cheks and insulin sliding scale, hold metformin. 5. Hypokalemia: Replace potassium and recheck. 6. Atrial fibrillation: Consult Electrophysiology Service for opinion and help with management. 7. Dyslipidemia: Continue statin. Many thanks for allowing me to participate in your patient's care. Please feel free to contact me with any questions or concerns. LEVEL OF RISK: Moderate. LEVEL OF COMPLEXITY: Moderate. MTDD
--- NOTE | 2017-12-14 15:37 | PDOC.EVN ---
Event Note - Event Note Event Note: BLOOD TRANSFUSION note @2870: Talked with RN...pulse 103, BP now 79/50...alert and well. Last HCT was 24 at noon. Pt NOT on lysteda and provera BID as assumed--so I restarted that now. I will transfuse 1 unit for hypotension and mild tachycardia as last hct was 24 from 26. Restarted provera 20mg TID and lysteda...TID. I will transfuse 1 unit now. Needs EMB. EMB being organized.
[2017-12-14] MEDS ORDERED: Tranexamic Acid 650 MG TAB PO SCH (16:00)
[2017-12-14] MEDS: medroxyPROGESTERone Acetate 5 MG TAB PO SCH ×2 (16:54→21:11)
--- NOTE | 2017-12-14 17:33 | PRG ---
DATE OF SERVICE: 12/14/2017 TIME OF INTERVENTION: 1605 until 1620. ENDOMETRIAL BIOPSY NOTE (EMB) In brief, the patient was taken from [facility] to gynecology lin for the performance of an endometrial biopsy. The patient was given information on EMB and patient accepted. The patient was told that the reason for the EMB/ indication was persistent heavy menstrual bleeding after a prolonged period of amenorrhea. The patient is also anticoagulated with a history of Xarelto use. Xarelto has now been held. PROCEDURE: I supervised Dr. Dora Weeks ([employer]izer) in the performance of a clean noncontaminated EMB using a metal Graves speculum. No tenaculum was necessary. Cervix was parous and there was approximately 15 mL of nonactive blood in the vaginal vault. The EMB was performed for 4 passes with abundant tissue past. Tissue was placed in a formalin container and sent to pathology for routine assessment. The patient tolerated the procedure well. INDICATION: 1. Persistent heavy abnormal uterine bleeding. 2. Suspected endometrial lesion. PROCEDURE: EMB. Tissue to pathology. No evidence of complications and tissue will be sent per routine. KACEY
--- NOTE | 2017-12-14 19:39 | PDOC.EVN ---
Event Note - Event Note Event Note: @193: Lorrie: Doing well. Getting her unit of PRBCs now. Patient seen and doing well.
[2017-12-14] MEDS: Tranexamic Acid 650 MG TAB PO SCH (21:12)
--- NOTE | 2017-12-14 23:59 | CON ---
DATE OF CONSULTATION: 12/14/2017 ELECTROPHYSIOLOGY CONSULTATION REPORT REFERRING PHYSICIAN: Genaro Chiu MD I am seeing Ms. Powell at our [facility] telemetry floor as electrophysiology implementation consultant. Her problems are: 1. History of atrial arrhythmias. A. History of paroxysmal atrial fibrillation with rapid rates with repeated admissions and DOUG-guide d cardioversions. B. Status post pulmonary venous isolation procedure on 10/12/2017. 2. CHADS-VASc score of 2 with hypertension and diabetes, on Xarelto for anticoagulation. 3. Structurally normal heart on 2D echo, 09/20/2017, showing LVEF 50%-55%, mild MR, mild TR, mildly dilated left atrium. 4. History of obesity. ALLERGIES: None noted. MEDICATIONS AT HOME: Including Lipitor, metformin, losartan/HCTZ, metoprolol tartrate, Xarelto, tram adol, omega-3 fatty acid, Tylenol. SUBJECTIVE: Ms. Powell is here with symptomatic anemia. She has vaginal bleeding and hemoglobin is dropping from 10.7 to 8.6 overnight in the hospital. She also had somewhat elevated creatinine 1. 81 with BUN 23. She was evaluated by OB service and endometrial biopsy is going to be planned. [place] roscopic hysterectomy is also a potential plan based on the result. I was asked to evaluate regarding her need for anticoagulation. On further questioning at this point, she has no significant arrhythmia symptoms. She denies palpita tions, dizziness, or loss of consciousness. No true chest discomforts are felt. No fever, chills, c ough. No PND or orthopnea. No stroke-like symptoms documented. Rest of 12-point systems are otherw ise unremarkable. OBJECTIVE DATA: VITAL SIGNS: Blood pressure is 88/58, heart rate 99, respirations 20, temperature 98.1 degrees Fahre nheit. GENERAL: Alert and oriented woman in no apparent distress. NECK: Supple. Jugular veins are not distended. CHEST: Coarse without crackles. CARDIOVASCULAR: Heart sounds are regular to rate and rhythm. No murmur or gallop. ABDOMEN: Benign. Bowel sounds are positive. EXTREMITIES: Lower extremities without edema, clubbing, or cyanosis. Pulses are adequate. NEUROLOGIC: The patient is nonfocal. MUSCULOSKELETAL: Without joint swelling or deformity. SKIN: Without rash. DATABASE: EKGs reviewed revealing sinus rhythm and sinus tachycardia with heart rates of 83 beats pe r minute. Telemetry strips also revealed sinus rhythm. No true arrhythmias are seen. LABORATORY DATA: Hemoglobin initially 10.7, dropped to 8.6, then 8.3 this afternoon. White count is 13.8, platelet count is 319. INR is 1.7. Sodium 137, potassium 3.2, BUN 23, creatinine is 1.8. T and ALT are normal at 22 and 19. ASSESSMENT AND PLAN: Ms. Powell is a pleasant 46-year-old woman with prior history of atrial fibr illation with rapid rates. She underwent a pulmonary venous isolation procedure with so far no evide nce of recurrence. This happened about 10 weeks ago. Now, she is presenting with [id number] symptomatic anemia with progressive blood loss transvaginally. She is being evaluated by OB with bi opsy even possible hysterectomy might need to be performed. I discussed the issues with her. So far, no evidence of recurrence of atrial fibrillation seen. Samir ally, we would like to continue anticoagulation for about 3 months post-procedure and then consider s topping the blood thinners at that point if clinically feasible. Hence severe bleeding is present, a t this point, our hands are tied and the blood thinners likely need to be stopped. Of note, she has also had some renal insufficiency, which likely make her Xarelto effect more prolonged than normal. For now, I agree holding Xarelto. Long-term plans will be based on the OB service to control the ble eding. At this point, risk of bleeding outweighed the benefit of anticoagulation. On my assessment, resuming anticoagulation could be considered for another month if her bleeding issues completely res olved, but at this point, I would hold off on that. Risk of interim stroke is discussed, although I hope with maintaining sinus rhythm, this will be actu ally lower.
--- NOTE | 2017-12-15 00:37 | PDOC.EVN ---
Event Note - Event Note Event Note: BPP noted and normal, EFW compatible for 37 week fetus...ok for DC
[2017-12-15] MEDS: Sodium Chloride 0.9% 1,000 ML IV SCH ×2 (03:22→16:22)
[2017-12-15 05:49] LABS: Hemoglobin 7.3 g/dL (12.0-16.0)
[2017-12-15] MEDS: traMADol HCl 50 MG TAB PO PRN ×2 (06:15→21:30)
--- NOTE | 2017-12-15 06:32 | PDOC.EVN ---
Event Note - Event Note Event Note: @0630: Patient seen at bedside Still with some vag bleed consent HCT 21 after 1 unit PRBC Vitals with pulse in 90s. TRANSFUSION NOTE: 1 additional unit PRBC Due to patient's age and BMI and due to decresaed but persistent vab bleed. I have just ordered an additional unit of PRBC. We will continue Lysteda TID and provera 20 mg po BID for now
[2017-12-15] MEDS: Fish Oil 1,000 MG CAP PO SCH (08:44)
[2017-12-15] MEDS: Tranexamic Acid 650 MG TAB PO SCH ×3 (08:44→21:31)
[2017-12-15] MEDS: Metoprolol Tartrate 25 MG TAB PO SCH ×2 (08:44→21:29)
[2017-12-15] MEDS: Atorvastatin Calcium 40 MG TAB PO SCH (08:44)
[2017-12-15] MEDS: medroxyPROGESTERone Acetate 5 MG TAB PO SCH ×2 (09:17→21:31)
--- NOTE | 2017-12-15 17:04 | PDOC.CTH ---
<Jacqueline Santillan - Last Filed: 12/15/17 17:01> Cardiology Progress Note - Subjective EP progress note: Patient seen and evaluated. No new cardiac concerns or complaints today. Denies heart racing, palpitations, chest pain/pressure, dizziness, or passing out. No stroke like symptoms. Getting PRBC transfusion. Biopsy happened yesterday afternoon. - Objective Vital Signs Temp Pulse Pulse Resp BP BP Pulse Ox 12/15/17 16:17 97.9 F 108 H 18 128/66 99 12/15/17 10:48 98 F 97 16 112/58 L 94 L 12/15/17 08:00 97 12/15/17 07:55 98 F 95 18 106/53 L 97 12/15/17 07:40 97.6 F 96 18 117/58 L 97 Weight 319 lb 3.2 oz 12/14/17 12/15/17 12/16/17 06:59 06:59 06:59 Intake Total 1300 2200 830 Balance 1300 2200 830 - Physical Examination General/Neuro: alert & oriented x3, NAD Neck: carotid US brisk, no JVD present Lungs: unlabored respirations Heart: PMI normal, RRR Abdomen: no HSM, NT/ND - Telemetry Telemetry Rhythm: Sinus tachycardia - Labs Result Diagrams: 12/15/17 04:29 12/14/17 04:28 - Assessment/Plan 1. Sinus tachycardia, less pronounced today after blood transfusion. 2. History of atrial fibrillation s/p PVAI 2 months ago. 3. Oral anticoagulation post ablation, on hold with acute bleeding issues. No documented or suspected recurrence, will transition to ASA only once bleeding is resolved. Watch closely for recurrences of atrial arrhythmias. 4. Acute anemia and bleeding EP signing off unless further input is requested. Thank you. <Patrick Herring - Last Filed: 12/15/17 17:23> Cardiology Progress Note - Objective Vital Signs Temp Pulse Pulse Resp BP BP Pulse Ox 12/15/17 16:17 97.9 F 108 H 18 128/66 99 12/15/17 10:48 98 F 97 16 112/58 L 94 L 12/15/17 08:00 97 12/15/17 07:55 98 F 95 18 106/53 L 97 12/15/17 07:40 97.6 F 96 18 117/58 L 97 Weight 319 lb 3.2 oz 12/14/17 12/15/17 12/16/17 06:59 06:59 06:59 Intake Total 1300 2200 830 Balance 1300 2200 830 - Labs Result Diagrams: 12/15/17 04:29 12/14/17 04:28 Attending Addendum - Attending Addendum Date/Time: 12/15/17 1722 I personally evaluated the patient and discussed the management with Ms Santillan. I agree with the History, Examination, Assessment and Plan documented above with any addition or exceptions noted below.
[2017-12-15 18:11] LABS: Hemoglobin 7.6 g/dL (12.0-16.0)
--- NOTE | 2017-12-15 18:53 | PDOC.PN ---
- Subjective Encounter Start Date: 12/15/17 Encounter Start Time: 09:00 Pt seen for followup re: symptomatic anemia. Feels better today. No chest pain , shortness of breath, fevers or chills. - Objective Resuscitation Status: Resuscitation Status FULL:Full Resuscitation Vital Signs & Weight: Vital Signs (12 hours) Temp Pulse Pulse Resp BP BP Pulse Ox 12/15/17 16:17 97.9 F 108 H 18 128/66 99 12/15/17 10:48 98 F 97 16 112/58 L 94 L 12/15/17 08:00 97 12/15/17 07:55 98 F 95 18 106/53 L 97 12/15/17 07:40 97.6 F 96 18 117/58 L 97 Weight Weight 319 lb 3.2 oz Most Recent Monitor Data Heart Rate from ECG 102 NIBP 85/53 Respiration from ECG 18 I&O: 12/14/17 12/15/17 12/16/17 06:59 06:59 06:59 Intake Total 1300 2200 3390 Balance 1300 2200 3390 Result Diagrams: 12/15/17 17:53 12/14/17 04:28 Additional Labs: Accuchecks 12/15/17 12/15/17 12/15/17 16:49 11:03 06:03 POC Glucose 187 H 164 H 145 H 12/14/17 20:47 POC Glucose 246 H Phys Exam - Physical Examination Morbid obesity HEENT: moist MMs, sclera anicteric, oral pharynx no lesions, 2+ tonsils Neck: no nodes, no JVD, supple, full ROM Respiratory: no wheezing, no rales, no rhonchi, clear to auscultation bilateral Cardiovascular: RRR, no rub S1, s2 Gastrointestinal: soft, non-tender, positive bowel sounds distention Neurological: moves all 4 limbs Psychiatric: normal affect, A&O x 3 Dx/Plan (1) Symptomatic anemia Code(s): D64.9 - ANEMIA, UNSPECIFIED Status: Acute Comment: pt received pRBC overnight, hemoglobin stable (2) Vaginal bleeding Code(s): N93.9 - ABNORMAL UTERINE AND VAGINAL BLEEDING, UNSPECIFIED Status: Acute Comment: seen by [facility] service, had endometrial biopsy yesterday, started on medications as below (3) Hypokalemia Code(s): E87.6 - HYPOKALEMIA Status: Acute Comment: replace potassium, recheck (4) Acute on chronic renal insufficiency Code(s): N28.9 - DISORDER OF KIDNEY AND URETER, UNSPECIFIED; N18.9 - CHRONIC KIDNEY DISEASE, UNSPECIFIED Status: Acute Comment: ckd stage 3. Likely prerenal HELENA, pt was also hypotensive yesterday. Continue IV fluids. If no improvement tomorrow, may need nephrology eval. (5) DM2 (diabetes mellitus, type 2) Status: Chronic Comment: Continue accuchecks, ISS for DM2. (6) H/O paroxysmal supraventricular tachycardia Code(s): Z86.79 - PERSONAL HISTORY OF OTHER DISEASES OF THE CIRCULATORY SYSTEM Status: Acute Comment: s/p ablation, off of anticoagulation now due to vaginal bleeding - Plan * . Review of Systems - Review of Systems Constitutional: negative: fever, chills, sweats, weakness, malaise Respiratory: negative: Cough, Shortness of Breath, SOB with Excertion, Pleuritic Pain, Wheezing Cardiovascular: negative: chest pain, palpitations, orthopnea, paroxysmal nocturnal dyspnea, edema, light headedness Gastrointestinal: negative: Nausea, Vomiting, Abdominal Pain, Diarrhea, Constipation, Melena, Hematochezia Genitourinary: Other (vaginal bleeding). negative: Dysuria, Frequency, Incontinence, Hematuria, Retention Neurological: negative: Weakness, Numbness, Incoordination, Change in Speech, Confusion, Seizures - Medications/Allergies Allergies/Adverse Reactions: Allergies Allergy/AdvReac Type Severity Reaction Status Date / Time No Known Allergies Allergy Verified 10/11/17 13:17 Medications: Current Medications Acetaminophen (Tylenol) 325 mg PO Q6H PRN PRN Reason: Pain 1-3 Atorvastatin Calcium (Lipitor) 40 mg PO DAILY [facility] Last Admin: 12/15/17 08:44 Dose: 40 mg Dextrose/Water (Dextrose 50%) 25 gm SLOW IVP PRN PRN PRN Reason: Hypoglycemia Fish Oil (Fish Oil) 1,000 mg PO DAILY [facility] Last Admin: 12/15/17 08:44 Dose: 1,000 mg Glucagon (Glucagon) 1 mg IM PRN PRN PRN Reason: Hypoglycemia Sodium Chloride (Normal Saline 0.9%) 1,000 mls @ 100 mls/hr IV .Q10H [facility] Last Admin: 12/15/17 16:22 Dose: 1,000 mls Dextrose/Water (D5w) 1,000 mls @ 0 mls/hr IV .Q0M PRN PRN Reason: Hypoglycemia Insulin Human Lispro (Humalog) 0 units SC .MILD SLIDING SCALE PRN PRN Reason: Mild Correctional Scale Medroxyprogesterone Acetate (Provera) 20 mg PO BID [facility] Last Admin: 12/15/17 09:17 Dose: 20 mg Metoprolol Tartrate (Lopressor) 12.5 mg PO BID [facility] Last Admin: 12/15/17 08:44 Dose: 12.5 mg Ondansetron HCl (Zofran) 4 mg IVP Q6H PRN PRN Reason: Nausea/Vomiting Pantoprazole Sodium (Protonix) 40 mg PO DAILY [facility] Last Admin: 12/15/17 08:44 Dose: 40 mg Sodium Chloride (Flush - Normal Saline) 10 ml IVF Q12HR [facility] Last Admin: 12/15/17 08:44 Dose: 10 ml Sodium Chloride (Flush - Normal Saline) 10 ml IVF PRN PRN PRN Reason: Saline Flush Tramadol HCl (Ultram) 50 mg PO Q6H PRN PRN Reason: Pain > 3 Last Admin: 12/15/17 06:15 Dose: 50 mg Tranexamic Acid (Lysteda) 1,300 mg PO TID [facility] Last Admin: 12/15/17 14:34 Dose: 1,300 mg
[2017-12-15] MEDS ORDERED: Potassium Chloride 20 MEQ TAB PO SCH (19:00)
[2017-12-16] MEDS: Sodium Chloride 0.9% 1,000 ML IV SCH ×3 (02:15→17:53)
[2017-12-16 05:02] LABS: #Basophils 0.1 thou/uL (0.0-0.2); #Eosinphils 0.1 thou/uL (0.0-0.7); #Lymphocytes 2.6 thou/uL (1.20-3.40); #Monocytes 0.4 thou/uL (0.11-0.59); #Neutrophils 4.3 thou/uL (1.40-6.50); %Basophils 0.7 % (0.0-1.0); %Eosinophils 1.8 % (0.0-10.0); %Lymphocytes 34.8 % (21.0-51.0); %Neutrophils 57.7 % (42.0-75.0); Hemoglobin 6.8 g/dL (12.0-16.0); Mean Corpuscular HGB CONC 34.3 g/dL (32.0-36.0); Mean Corpuscular Volume 90.2 fL (78.0-98.0); Mean Platelet Volume 7.5 fL (7.4-10.4); Platelet Count 203 thou/uL (130-400); RBC Distribution Width 13.5 % (11.5-14.5); Red Blood Cell (RBC) Count 2.19 mill/uL (4.20-5.40); White Blood Cell (WBC) Count 7.4 thou/uL (4.8-10.8)
[2017-12-16 05:08] LABS: Anion Gap 10 mmol/L (10-20); BUN (Urea Nitrogen) 18 mg/dL (7.0-18.7); Calc. Creatinine Clearance 140 mL/min (70-130); Calcium 8.4 mg/dL (7.8-10.44); Carbon Dioxide 25 mmol/L (22-29); Chloride 105 mmol/L (98-107); Estimated GFR-MDRD 51; Glucose 125 mg/dL (70-105); Potassium 3.8 mmol/L (3.5-5.1); Sodium 136 mmol/L (136-145)
--- NOTE | 2017-12-16 07:54 | PDOC.EVN ---
Event Note - Event Note Event Note: Patient feels like her bleeding has improved but it has not stopped on Lysteda and Provera. She is still passing golf ball sized clots. Overall feeling much better. O: AFVSS Gen - AAO, NAD Chest - nonlabored Abd - obese, soft, NTTP, no guarding or rebound Laboratory Results - last 24 hr 12/15/17 12/16/17 12/16/17 20:44 04:21 04:21 WBC 7.4 RBC 2.19 L Hgb 6.8 L Hct 19.8 L MCV 90.2 MCH 31.0 MCHC 34.3 RDW 13.5 Plt Count 203 MPV 7.5 Neutrophils % 57.7 Lymphocytes % 34.8 Monocytes % 5.0 Eosinophils % 1.8 Basophils % 0.7 Neutrophils # 4.3 Lymphocytes # 2.6 Monocytes # 0.4 Eosinophils # 0.1 Basophils # 0.1 Sodium 136 Potassium 3.8 Chloride 105 Carbon Dioxide 25 Anion Gap 10 BUN 18 Creatinine 1.16 H Estimated GFR (MDRD) 51 Glucose 125 H POC Glucose 239 H Calcium 8.4 12/16/17 05:35 WBC RBC Hgb Hct MCV MCH MCHC RDW Plt Count MPV Neutrophils % Lymphocytes % Monocytes % Eosinophils % Basophils % Neutrophils # Lymphocytes # Monocytes # Eosinophils # Basophils # Sodium Potassium Chloride Carbon Dioxide Anion Gap BUN Creatinine Estimated GFR (MDRD) Glucose POC Glucose 133 H Calcium A/P: 46 y/o with AUB and continued bleeding on about 48 hours of Lysteda and Provera, now s/p transfusion 2u PRBCs. H/H has continued to drop. Would recommend another unit of blood transfusion. Will likely need a D&C today as she has not responded to the medications as we would have hoped. Will make NPO. EMB pending.
--- NOTE | 2017-12-16 13:25 | PQF ---
CLINICAL DOCUMENTATION IMPROVEMENT CLARIFICATION FORM: ICD-10 Updated PLEASE DO AN ADDENDUM TO THE PROGRESS NOTE WITH ANY DOCUMENTATION UPDATES OR ADDITIONS AND CARRY THROUGH TO DC SUMMARY. THANK YOU. DATE: 12/16/17 ATTN: Dr. Chiu Please exercise your independent, professional judgment in responding to the clarification form. Clinical indicators are provided on the bottom of this form for your review Please check appropriate box(s): [ ] Acute blood loss anemia [ ] Anemia due to: [ ] Other diagnosis [ ] Unable to determine In addition, please specify: Present on Admission (POA): [ ] Yes [ ] No [ ] Unable to determine For continuity of documentation, please document condition throughout progress notes and discharge summary. Thank You. CLINICAL INDICATORS - SIGNS / SYMPTOMS / LABS EP CONSULT: SHE IS PRESENTING WITH [id number] SYMPTOMATIC ANEMIA WITH PROGRESSIVE BLOOD LOSS TRANSVAGINALLY PN 12/15: SYMPTOMATIC ANEMIA. ACUTE EVENT NOTE 12/16: HGB 6.8 HCT 19.8 RISKS: H&P: SYMPTOMATIC ANEMIA SECONDARY TO VAGINAL BLEEDING. DM 2, ATRIAL FIBRILLATION TREATMENT: PROC: 12/14 ENDOMETRIAL BIOPSY ORDER H/H STAT 12/14; AM 12/15; 12/15 1753; PN 12/15: PT RECEIVED PRBC OVERNIGHT Thank you, Tori (This form is maintained as a part of the permanent medical record) 2014 [employer] All Rights Reserved Tori Ivory RN, BSN [email or web address] Office: [phone] [facility]
[2017-12-16] MEDS ORDERED: Labetalol HCl 100 MG/20 ML VIAL ONE (13:51)
[2017-12-16] MEDS: Atorvastatin Calcium 40 MG TAB PO SCH (13:58)
[2017-12-16] MEDS: medroxyPROGESTERone Acetate 5 MG TAB PO SCH ×2 (13:58→21:39)
[2017-12-16] MEDS: Tranexamic Acid 650 MG TAB PO SCH ×3 (13:58→21:39)
[2017-12-16] MEDS: Metoprolol Tartrate 25 MG TAB PO SCH ×3 (13:59→22:08)
[2017-12-16] MEDS: Fish Oil 1,000 MG CAP PO SCH (16:06)
--- NOTE | 2017-12-16 18:13 | PDOC.PN ---
- Subjective Encounter Start Date: 12/16/17 Encounter Start Time: 09:00 Pt seen for followup re: acute blood loss anemia. Feels better. No chest pain , shortness of breath, fevers or chills. Still has vaginal bleeding. - Objective Resuscitation Status: Resuscitation Status FULL:Full Resuscitation MAR Reviewed: Yes Vital Signs & Weight: Vital Signs (12 hours) Temp Pulse Pulse Resp BP BP 12/16/17 15:43 97.6 F 97 20 117/63 12/16/17 14:05 97.1 F L 96 20 113/53 L 12/16/17 14:03 95 12/16/17 12:31 98.1 F 96 20 130/60 12/16/17 08:00 98.1 F 95 20 128/62 Weight Weight 323 lb 1.6 oz Most Recent Monitor Data Heart Rate from ECG 102 NIBP 85/53 Respiration from ECG 18 I&O: 12/15/17 12/16/17 12/17/17 06:59 06:59 06:59 Intake Total 2200 5257 0 Output Total 6 Balance 2200 5251 0 Result Diagrams: 12/16/17 04:21 12/16/17 04:21 Additional Labs: Accuchecks 12/16/17 12/16/17 12/15/17 17:22 05:35 20:44 POC Glucose 108 133 H 239 H EKG Reviewed by me: Yes (Tele: NSR) Phys Exam - Physical Examination Morbid obesity HEENT: moist MMs Neck: supple Respiratory: clear to auscultation bilateral Cardiovascular: RRR Gastrointestinal: soft Neurological: moves all 4 limbs Psychiatric: normal affect Dx/Plan (1) Acute blood loss anemia Code(s): D62 - ACUTE POSTHEMORRHAGIC ANEMIA Status: Acute Comment: present on admission, due to vaginal bleeding. Pt to receive 1 unuit pRBC today. (2) Symptomatic anemia Code(s): D64.9 - ANEMIA, UNSPECIFIED Status: Acute Comment: pt to receive one unit pRBC (3) Vaginal bleeding Code(s): N93.9 - ABNORMAL UTERINE AND VAGINAL BLEEDING, UNSPECIFIED Status: Acute Comment: Pt likely for D&C today (4) Hypokalemia Code(s): E87.6 - HYPOKALEMIA Status: Resolved (5) Acute on chronic renal insufficiency Code(s): N28.9 - DISORDER OF KIDNEY AND URETER, UNSPECIFIED; N18.9 - CHRONIC KIDNEY DISEASE, UNSPECIFIED Status: Acute Comment: Creatinine improved to 1.16 today (6) DM2 (diabetes mellitus, type 2) Status: Chronic Comment: Continue accuchecks, ISS (7) H/O paroxysmal supraventricular tachycardia Code(s): Z86.79 - PERSONAL HISTORY OF OTHER DISEASES OF THE CIRCULATORY SYSTEM Status: Chronic Comment: s/p ablation, off of anticoagulation now due to vaginal bleeding - Plan * . Review of Systems - Review of Systems Cardiovascular: negative: chest pain, palpitations, orthopnea, paroxysmal nocturnal dyspnea, edema, light headedness Gastrointestinal: negative: Nausea, Vomiting, Abdominal Pain, Diarrhea, Constipation, Melena, Hematochezia Genitourinary: Other (vaginal bleeding) - Medications/Allergies Allergies/Adverse Reactions: Allergies Allergy/AdvReac Type Severity Reaction Status Date / Time No Known Allergies Allergy Verified 10/11/17 13:17 Medications: Current Medications Acetaminophen (Tylenol) 325 mg PO Q6H PRN PRN Reason: Pain 1-3 Last Admin: 12/16/17 15:59 Dose: 325 mg Atorvastatin Calcium (Lipitor) 40 mg PO DAILY [facility] Last Admin: 12/16/17 13:58 Dose: 40 mg Dextrose/Water (Dextrose 50%) 25 gm SLOW IVP PRN PRN PRN Reason: Hypoglycemia Glucagon (Glucagon) 1 mg IM PRN PRN PRN Reason: Hypoglycemia Sodium Chloride (Normal Saline 0.9%) 1,000 mls @ 100 mls/hr IV .Q10H [facility] Last Admin: 12/16/17 17:53 Dose: 1,000 mls Dextrose/Water (D5w) 1,000 mls @ 0 mls/hr IV .Q0M PRN PRN Reason: Hypoglycemia Insulin Human Lispro (Humalog) 0 units SC .MILD SLIDING SCALE PRN PRN Reason: Mild Correctional Scale Medroxyprogesterone Acetate (Provera) 20 mg PO BID [facility] Last Admin: 12/16/17 13:58 Dose: 20 mg Metoprolol Tartrate (Lopressor) 12.5 mg PO BID [facility] Last Admin: 12/16/17 16:05 Dose: 12.5 mg Ondansetron HCl (Zofran) 4 mg IVP Q6H PRN PRN Reason: Nausea/Vomiting Pantoprazole Sodium (Protonix) 40 mg PO DAILY [facility] Last Admin: 12/16/17 13:59 Dose: 40 mg Sodium Chloride (Flush - Normal Saline) 10 ml IVF Q12HR [facility] Last Admin: 12/16/17 16:05 Dose: Not Given Sodium Chloride (Flush - Normal Saline) 10 ml IVF PRN PRN PRN Reason: Saline Flush Tramadol HCl (Ultram) 50 mg PO Q6H PRN PRN Reason: Pain > 3 Last Admin: 12/15/17 21:30 Dose: 50 mg Tranexamic Acid (Lysteda) 1,300 mg PO TID [facility] Last Admin: 12/16/17 16:06 Dose: Not Given
[2017-12-16] MEDS: traMADol HCl 50 MG TAB PO PRN (21:40)
[2017-12-17] MEDS: Sodium Chloride 0.9% 1,000 ML IV SCH ×2 (03:43→17:14)
[2017-12-17 05:10] LABS: #Eosinphils 0.1 thou/uL (0.0-0.7); #Monocytes 0.3 thou/uL (0.11-0.59); #Neutrophils 3.7 thou/uL (1.40-6.50); %Basophils 0.4 % (0.0-1.0); %Eosinophils 2.4 % (0.0-10.0); %Lymphocytes 31.9 % (21.0-51.0); %Monocytes 5.2 % (0.0-10.0); %Neutrophils 60.2 % (42.0-75.0); Anion Gap 10 mmol/L (10-20); BUN (Urea Nitrogen) 14 mg/dL (7.0-18.7); Calc. Creatinine Clearance 145 mL/min (70-130); Calcium 8.2 mg/dL (7.8-10.44); Carbon Dioxide 25 mmol/L (22-29); Chloride 107 mmol/L (98-107); Estimated GFR-MDRD 52; Glucose 156 mg/dL (70-105); Hemoglobin 6.8 g/dL (12.0-16.0); Mean Corpuscular HGB CONC 34.7 g/dL (32.0-36.0); Mean Corpuscular Hemoglobin 31.3 pg (27.0-31.0); Mean Corpuscular Volume 90.3 fL (78.0-98.0); Mean Platelet Volume 7.4 fL (7.4-10.4); Platelet Count 197 thou/uL (130-400); Potassium 3.9 mmol/L (3.5-5.1); RBC Distribution Width 14.1 % (11.5-14.5); Red Blood Cell (RBC) Count 2.17 mill/uL (4.20-5.40); Sodium 138 mmol/L (136-145); White Blood Cell (WBC) Count 6.2 thou/uL (4.8-10.8)
--- NOTE | 2017-12-17 07:50 | OP ---
DATE OF SERVICE: 12/16/2017 PROCEDURES PERFORMED: Endometrial biopsy PREOPERATIVE DIAGNOSES: Abnormal uterine bleeding with history of amenorrhea. POSTOPERATIVE DIAGNOSES: Abnormal uterine bleeding with history of amenorrhea. PROCEDURE: Endometrial biopsy. COMPLICATIONS: None. INDICATIONS FOR PROCEDURE: Ms. Powell is a 47-year-old female who was admitted to the hospital fo r symptomatic anemia and abnormal uterine bleeding. An endometrial biopsy was attempted, but found t o be insufficient for pathology review. The patient has been recounseled to the risks and benefits o f endometrial biopsy and has accepted and desires to proceed. DESCRIPTION OF PROCEDURE: The patient was placed in dorsal lithotomy position. She was prepped with Betadine. An endometrial pipette was then used for biopsy sampling. Upon visualization of the cerv ix a single-tooth tenaculum was applied to the anterior lip of the cervix. The pipette was then intr oduced with a sound of approximately 11 cm. Multiple passes were made with 2 separate pipettes in an effort to get good sampling as the patient had significant amount of clot still in the endometrial c anal. The patient tolerated the procedure well. There was a 50-75 mL clot up upon the start of the procedure and the patient bled another 25 mL during the procedure. The patient tolerated procedure w ell. The tenaculum was removed from the anterior lip of the cervix and was hemostatic spontaneously. The speculum then was removed and the patient was returned to her room in stable condition.
--- NOTE | 2017-12-17 08:23 | PDOC.EVN ---
Event Note - Event Note Event Note: Lysteda Day 4 today...I have self D/C'd the order today for 2099. Last HgB was 6.8....we will recheck at noon. Continue provera BID...re-EMB result pending. Last unit (#3) was over yesterday.
--- NOTE | 2017-12-17 08:56 | PDOC.EVN ---
Event Note - Event Note Event Note: HD 6 [facility] OBGYN note Patient now s/p 3rd unit PRBC yesterday. I received check out from Dr Foreman. Re-emb pending result. Hai last day today, still on provera BID (20mg). S. States no lightheadedness, no SOB, ambulating O. BP 131/89 this AM and pulse 97... Last hgb 6.8 and holding stable. States VB is light light period...no clots A/P: New onset HMB after 2 years of no cycle with re-EMB pending result (first was scant benign with lots of clot). 1. Continue provera 20mg BID 2. Recheck HGB at 1600 3. If stable, consider home tomorrow am on provera 20mg po BID X 14 days total ( like 10 more days). Will have [facility] follow up. Plan d/w patient and daughter at bedside. All questions answered.
[2017-12-17] MEDS: Atorvastatin Calcium 40 MG TAB PO SCH (09:24)
[2017-12-17] MEDS: medroxyPROGESTERone Acetate 5 MG TAB PO SCH ×2 (09:25→21:09)
[2017-12-17] MEDS: Metoprolol Tartrate 25 MG TAB PO SCH ×2 (09:25→21:07)
[2017-12-17] MEDS: Tranexamic Acid 650 MG TAB PO SCH ×3 (09:26→21:08)
[2017-12-17 15:54] LABS: Hemoglobin 7.3 g/dL (12.0-16.0)
--- NOTE | 2017-12-17 18:15 | PDOC.EVN ---
Event Note - Event Note Event Note: HCT remains stable at HCT Likely home tomorrow with continued provera 20mg po BID X 10 days
--- NOTE | 2017-12-17 18:30 | PDOC.PN ---
- Subjective Encounter Start Date: 12/17/17 Encounter Start Time: 08:20 Pt seen for followup re: acute blood loss anemia. Feels better. - Objective Resuscitation Status: Resuscitation Status FULL:Full Resuscitation Vital Signs & Weight: Vital Signs (12 hours) Temp Pulse Resp BP BP Pulse Ox 12/17/17 16:16 97.6 F 95 20 119/57 L 98 12/17/17 12:02 97.9 F 95 18 119/58 L 95 12/17/17 08:49 96 15 131/74 97 Weight Weight 322 lb 3.2 oz Most Recent Monitor Data Heart Rate from ECG 102 NIBP 85/53 Respiration from ECG 18 I&O: 12/16/17 12/17/17 12/18/17 06:59 06:59 06:59 Intake Total 5253 2847 2510 Output Total 6 Balance 5250 2847 2517 Result Diagrams: 12/17/17 15:44 12/17/17 04:33 Additional Labs: Accuchecks 12/17/17 12/17/17 12/16/17 17:48 11:17 20:42 POC Glucose 174 H 205 H 212 H Phys Exam - Physical Examination morbid obesity HEENT: moist MMs Neck: supple Respiratory: clear to auscultation bilateral Cardiovascular: RRR Gastrointestinal: soft Neurological: moves all 4 limbs Psychiatric: normal affect Skin: no rash Dx/Plan (1) Acute blood loss anemia Code(s): D62 - ACUTE POSTHEMORRHAGIC ANEMIA Status: Acute Comment: hemoglobin stable today (2) Symptomatic anemia Code(s): D64.9 - ANEMIA, UNSPECIFIED Status: Acute Comment: hemoglobin stable today (3) Vaginal bleeding Code(s): N93.9 - ABNORMAL UTERINE AND VAGINAL BLEEDING, UNSPECIFIED Status: Acute Comment: Pt had D&C (4) Acute on chronic renal insufficiency Code(s): N28.9 - DISORDER OF KIDNEY AND URETER, UNSPECIFIED; N18.9 - CHRONIC KIDNEY DISEASE, UNSPECIFIED Status: Acute Comment: Creatinine improved to 1.12 today (5) DM2 (diabetes mellitus, type 2) Status: Chronic Comment: Continue accuchecks, ISS, resume metformin (6) H/O paroxysmal supraventricular tachycardia Code(s): Z86.79 - PERSONAL HISTORY OF OTHER DISEASES OF THE CIRCULATORY SYSTEM Status: Chronic Comment: s/p ablation (7) Hypokalemia Code(s): E87.6 - HYPOKALEMIA Status: Resolved - Plan * . Review of Systems - Review of Systems Respiratory: negative: Cough, Dry, Shortness of Breath, Hemoptysis, SOB with Excertion, Pleuritic Pain, Sputum, Wheezing Cardiovascular: negative: chest pain, palpitations, orthopnea, paroxysmal nocturnal dyspnea, edema, light headedness - Medications/Allergies Allergies/Adverse Reactions: Allergies Allergy/AdvReac Type Severity Reaction Status Date / Time No Known Allergies Allergy Verified 10/11/17 13:17 Medications: Current Medications Acetaminophen (Tylenol) 325 mg PO Q6H PRN PRN Reason: Pain 1-3 Last Admin: 12/16/17 15:59 Dose: 325 mg Atorvastatin Calcium (Lipitor) 40 mg PO DAILY [facility] Last Admin: 12/17/17 09:24 Dose: 40 mg Dextrose/Water (Dextrose 50%) 25 gm SLOW IVP PRN PRN PRN Reason: Hypoglycemia Glucagon (Glucagon) 1 mg IM PRN PRN PRN Reason: Hypoglycemia Dextrose/Water (D5w) 1,000 mls @ 0 mls/hr IV .Q0M PRN PRN Reason: Hypoglycemia Insulin Human Lispro (Humalog) 0 units SC .MILD SLIDING SCALE PRN PRN Reason: Mild Correctional Scale Medroxyprogesterone Acetate (Provera) 20 mg PO BID [facility] Last Admin: 12/17/17 09:25 Dose: 20 mg Metformin HCl (Glucophage) 500 mg PO BID [facility] Metoprolol Tartrate (Lopressor) 12.5 mg PO BID [facility] Last Admin: 12/17/17 09:25 Dose: 12.5 mg Ondansetron HCl (Zofran) 4 mg IVP Q6H PRN PRN Reason: Nausea/Vomiting Pantoprazole Sodium (Protonix) 40 mg PO DAILY [facility] Last Admin: 12/17/17 09:26 Dose: 40 mg Sodium Chloride (Flush - Normal Saline) 10 ml IVF Q12HR [facility] Last Admin: 12/17/17 09:26 Dose: Not Given Sodium Chloride (Flush - Normal Saline) 10 ml IVF PRN PRN PRN Reason: Saline Flush Tramadol HCl (Ultram) 50 mg PO Q6H PRN PRN Reason: Pain > 3 Last Admin: 12/16/17 21:40 Dose: 50 mg Tranexamic Acid (Lysteda) 1,300 mg PO TID [facility] Stop: 12/17/17 21:00 Last Admin: 12/17/17 16:14 Dose: 1,300 mg
--- NOTE | 2017-12-17 20:57 | PRG ---
DATE OF SERVICE: 12/17/2017 BED CHECK TIME OF EVALUATION: 19:20 until 19:35. LOCATION: [facility] SUBJECTIVE: I evaluated the patient at bedside to follow up on her bleeding status. This patient states that her bleeding has greatly decreased. OBJECTIVE: VITAL SIGNS: Stable and afebrile. Last blood pressure was 140/80. Pulse 98. ABDOMEN: Soft and nontender. LABORATORY: Last laboratory value was hemoglobin of 7.4, which was basically stable from before. ASSESSMENT and PLAN: This is a patient who was on anticoagulation, who has had 2 endometrial biopsies with the most recent one results still pending, and has had 3 units of packed red blood cells. 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 b.i.d. for 10 days. I have left a prescription in this chart for her. The patient is to follow up at [facility] [place] in 1-2 weeks for continued followup and for possible Mirena placement to try to prevent future abnormal uterine bleeding. Again, I discussed with the patient that we are effectively signing off at this time and we will follow up the EMB at that time. KACEY
[2017-12-17] MEDS: metFORMIN 500 MG TAB PO SCH (21:07)
[2017-12-18 04:47] LABS: #Eosinphils 0.2 thou/uL (0.0-0.7); #Lymphocytes 1.8 thou/uL (1.20-3.40); #Monocytes 0.4 thou/uL (0.11-0.59); #Neutrophils 3.5 thou/uL (1.40-6.50); %Basophils 0.1 % (0.0-1.0); %Eosinophils 2.9 % (0.0-10.0); %Lymphocytes 30.7 % (21.0-51.0); %Monocytes 6.8 % (0.0-10.0); %Neutrophils 59.4 % (42.0-75.0); Hemoglobin 6.7 g/dL (12.0-16.0); Mean Corpuscular HGB CONC 34.1 g/dL (32.0-36.0); Mean Corpuscular Hemoglobin 31.3 pg (27.0-31.0); Mean Corpuscular Volume 91.8 fL (78.0-98.0); Mean Platelet Volume 7.3 fL (7.4-10.4); Platelet Count 209 thou/uL (130-400); RBC Distribution Width 14.2 % (11.5-14.5); Red Blood Cell (RBC) Count 2.13 mill/uL (4.20-5.40); White Blood Cell (WBC) Count 5.9 thou/uL (4.8-10.8)
[2017-12-18 04:55] LABS: Anion Gap 10 mmol/L (10-20); BUN (Urea Nitrogen) 11 mg/dL (7.0-18.7); Calc. Creatinine Clearance 159 mL/min (70-130); Calcium 8.4 mg/dL (7.8-10.44); Carbon Dioxide 25 mmol/L (22-29); Chloride 110 mmol/L (98-107); Estimated GFR-MDRD 58; Glucose 122 mg/dL (70-105); Potassium 3.8 mmol/L (3.5-5.1); Sodium 141 mmol/L (136-145)
[2017-12-18] MEDS: Atorvastatin Calcium 40 MG TAB PO SCH (10:39)
[2017-12-18] MEDS: medroxyPROGESTERone Acetate 5 MG TAB PO SCH (10:39)
[2017-12-18] MEDS: metFORMIN 500 MG TAB PO SCH (10:39)
[2017-12-18] MEDS: Metoprolol Tartrate 25 MG TAB PO SCH (10:57)
[2017-12-18 16:00] VITALS: BP 121/73; TEMP 98.1
--- NOTE | 2017-12-18 22:20 | DIS ---
DATE OF ADMISSION: 12/14/2017 DATE OF DISCHARGE: 12/18/2017 PRIMARY CARE PHYSICIAN: Lianna Dean MD DISCHARGE DIAGNOSES: 1. Anemia of acute blood loss. 2. Symptomatic anemia. 3. Vaginal bleeding. CONSULTATIONS DURING THIS HOSPITALIZATION: Gynecology, Dr. Prince Valdivia; and Electrophysiology, Dr. Patrick Herring. CONDITION OF PATIENT ON THE DAY OF DISCHARGE: Stable. I assessed Ms. Andre Myrick on the day o f discharge. She denies any chest pain or shortness of breath. She reports that the vaginal bleedin g has significantly decreased. Vital signs are stable. S1 and S2 are heard, regular. Lungs are sanjuana ar to auscultation bilaterally. DISCHARGE MEDICATIONS: Her rivaroxaban has been discontinued. She has been started on Provera. Oth erwise, no change was made to her preadmission home medications as dictated on my history and physica l note dated 12/14/2017. HOSPITAL COURSE: Ms. Andre Myrick is a pleasant 47-year-old lady, who was admitted to [facility] on 12/18/2017. Please refer to my history and physical note dated 8 for further details. She was seen by Electrophysiology and Obstetrics and Gynecology services. He r anticoagulation was stopped. She was started on Lysteda and Provera. She also underwent endometri al biopsy. The first biopsy path report was inconclusive. She underwent another endometrial biopsy, result pending at this time. Gynecology service will follow up with her as outpatient. She also received packed RBC transfusions during this hospitalization. Her hemoglobin stabilized. S he also had improvement in terms of vaginal bleeding. She is being discharged home in a stable condi tion. On the day of discharge, she has white count 5900 and hemoglobin 6.7, she is receiving another unit o f packed RBC prior to discharge; platelet count 209,000. Sodium 141, potassium 3.8, and creatinine 5 8. Many thanks for allowing me to participate in your patient's care. Please feel free to contact me wi th any questions or concerns. DISCHARGE DESTINATION: Home. TOTAL AMOUNT OF TIME SPENT COORDINATING THIS DISCHARGE: 33 minutes.
== END 2017-12-18 16:38 | disposition home or self-care (01) | DRG 744 ==
LOC: ERS 19:41 → 2NO 21:30
PROVIDERS: ADMIT Hospitalist; ATTEND Hospitalist
PROC: 30233N1 Transfusion of Nonautologous Red Blood Cells into Peripheral Vein, Percutaneous Approach (ICD-10-PCS; principal; 2017-12-14)
PROC: 0UDB7ZX Extraction of Endometrium, Via Natural or Artificial Opening, Diagnostic (ICD-10-PCS; 2017-12-14)
PROC: 0UDB7ZX Extraction of Endometrium, Via Natural or Artificial Opening, Diagnostic (ICD-10-PCS; 2017-12-16)
DX: N93.8 Other specified abnormal uterine and vaginal bleeding (principal); D62 Acute posthemorrhagic anemia; Z68.42 Body mass index [BMI] 45.0-49.9, adult; N17.9 Acute kidney failure, unspecified; D25.1 Intramural leiomyoma of uterus; E87.6 Hypokalemia; N91.2 Amenorrhea, unspecified; I12.9 Hypertensive chronic kidney disease with stage 1 through stage 4 chronic kidney disease, or unspecified chronic kidney disease; E11.22 Type 2 diabetes mellitus with diabetic chronic kidney disease; N18.3 Chronic kidney disease, stage 3 (moderate); I48.0 Paroxysmal atrial fibrillation; E66.01 Morbid (severe) obesity due to excess calories; E78.5 Hyperlipidemia, unspecified; Z79.01 Long term (current) use of anticoagulants; Z79.84 Long term (current) use of oral hypoglycemic drugs
CPT/HCPCS: 36415; 36416; 36430; 74177; 76856; 80048; 80053; 81003; 81015; 81025; 83690; 85014; 85018; 85025; 85610; 85730; 86850; 86900; 86901; 88305; 93005; 96360; 96361; 96372; 96374; A4216; J0696; J2001; J2270; J2405; J7620; P9016

== ENCOUNTER 2017-12-30 09:43 | Outpatient (CLI) | payer OTHER ==
[2017-12-30 11:12] LABS: Hemoglobin 11.4 g/dL (12.0-16.0); Mean Corpuscular HGB CONC 32.7 g/dL (32.0-36.0); Mean Corpuscular Hemoglobin 30.3 pg (27.0-31.0); Mean Corpuscular Volume 92.8 fL (78.0-98.0); Mean Platelet Volume 7.3 fL (7.4-10.4); Platelet Count 287 thou/uL (130-400); Red Blood Cell (RBC) Count 3.76 mill/uL (4.20-5.40); White Blood Cell (WBC) Count 7.6 thou/uL (4.8-10.8)
[2017-12-30 11:23] LABS: Prothrombin Time 13.6 SEC (12.0-14.7)
[2017-12-30 11:42] LABS: ALT (SGPT) 15 U/L (8-55); AST (SGOT) 16 U/L (5-34); Albumin 4.5 g/dL (3.5-5.0); Alkaline Phosphatase 98 U/L (40-150); Anion Gap 10 mmol/L (10-20); BUN (Urea Nitrogen) 16 mg/dL (7.0-18.7); Bilirubin, Total 0.7 mg/dL (0.2-1.2); Calc. Creatinine Clearance 0 mL/min (70-130); Calcium 9.6 mg/dL (7.8-10.44); Carbon Dioxide 25 mmol/L (22-29); Chloride 106 mmol/L (98-107); Estimated GFR-MDRD 56; Globulin 3.2 g/dL (2.4-3.5); Glucose 103 mg/dL (70-105); Potassium 4.4 mmol/L (3.5-5.1); Protein, Total 7.7 g/dL (6.0-8.3); Sodium 137 mmol/L (136-145)
--- NOTE | 2018-01-01 08:31 | EKG ---
Test Reason : Blood Pressure : / mmHG Vent. Rate : 094 BPM Atrial Rate : 094 BPM P-R Int : 152 ms QRS Dur : 094 ms QT Int : 366 ms P-R-T Axes : 006 007 010 degrees QTc Int : 457 ms Normal sinus rhythm Cannot rule out Anterior infarct , age undetermined (Doubtful) Abnormal ECG Confirmed by SUSIE RIVAS ([id number]) on 01/01/2018 8:31:31 AM Referred By: MANISH Confirmed By:SUSIE RIVAS
== END 2017-12-30 09:44 | disposition home or self-care (01) ==
LOC: LABBT 09:43
PROVIDERS: ATTEND Obstetrics & Gynecology
DX: Z01.818 Encounter for other preprocedural examination (principal); N93.8 Other specified abnormal uterine and vaginal bleeding
CPT/HCPCS: 80053; 85027; 85610; 85730; 86850; 86900; 86901; 93005; 93010

== ENCOUNTER 2018-01-05 10:46 | Day surgery (SDC) | payer OTHER ==
[2017-12-30 10:11] VITALS: BMI 45.8
--- NOTE | 2018-01-05 10:06 | HP ---
DATE OF ADMISSION: 01/05/2018. REASON FOR ADMISSION: Menorrhagia with anemia. SCHEDULED PROCEDURE: Hysteroscopy, D&C with Lynne endometrial ablation. HISTORY OF PRESENT ILLNESS: Ms. Powell is a 47-year-old 3, para 3 who first presented to the emergency room at [place] in early December. She was noted to have menorrhagia with anemia. T he patient was on Xarelto secondary to a history of atrial fibrillation, now status post ablation. T he patient was hospitalized, underwent transfusion an endometrial biopsy was benign. Her Xarelto was discontinued. Because of her risk scoring there was a significant desire by Cardiology to restart he r anticoagulation. Considering the amount of bleeding the patient had a decision made to proceed wit h endometrial ablation prior to restarting anticoagulation. 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 History of negative Pap. PAST MEDICAL HISTORY: Hypertension, type 2 diabetes, atrial fibrillation and atrial fibrillation abl ation in 10/2017. PAST SURGICAL HISTORY: Tubal ligation and cardiac ablation. ALLERGIES: Denies. MEDICATIONS: Metformin, losartan/hydrochlorothiazide, ____, metoprolol, and Provera. SOCIAL HISTORY: Denies tobacco, alcohol, or drug use. FAMILY HISTORY/REVIEW OF SYSTEMS: Noncontributory. PHYSICAL EXAMINATION: GENERAL: A White female. VITAL SIGNS: Blood pressure 118/72, pulse rate 85, respirations 18. HEENT: Within normal limits. LUNGS: Clear to auscultation bilaterally. HEART: Regular rhythm. BREASTS: No mass bilaterally. ABDOMEN: Soft, without rebound or guarding. PELVIC: Vulva without lesions. Vagina without discharge. Cervix parous, uterus anteverted, 8 week size. Adnexa; no masses bilaterally. EXTREMITIES: Without clubbing, cyanosis or edema. LABORATORY AND X-RAY FINDINGS: Endometrial biopsy was benign proliferative endometrium. Ultrasound revealed a slightly thickened endometrial stripe, but was otherwise unremarkable except for a 4 cm fi broid in the lower uterine segment. IMPRESSION: Menorrhagia, likely due to obesity, fibroids and anticoagulation. PLAN: As the patient could require prolonged anticoagulation endometrial ablation seems a reasonable first step treatment choice. Considering its decreased morbidity versus hysterectomy we will procee d with such procedure with Lynne at [facility] [place] on 01/05/2018 at approximately noon.
[2018-01-05] MEDS ORDERED: Midazolam HCl 2 mg/2 ml Vial ONE (11:52)
[2018-01-05] MEDS ORDERED: Fentanyl 100 MCG/2 ML VIAL ONE ×2 (11:52→13:37)
[2018-01-05] MEDS ORDERED: CEFAZOLIN/Water 2 GM/20 ML SYRINGE ONE (11:59)
--- NOTE | 2018-01-05 13:26 | OP ---
DATE OF PROCEDURE: 01/05/2018 PREOPERATIVE DIAGNOSIS: Menorrhagia with need for long-term anticoagulation. POSTOPERATIVE DIAGNOSIS: Menorrhagia with need for long-term anticoagulation. PROCEDURE: D and C, hysteroscopy, and Lynne endometrial ablation. SURGEON: Prince Valdivia M.D. ANESTHESIA: General endotracheal, Marvin Cline CRNA. ESTIMATED BLOOD LOSS: Less than 15 mL COMPLICATIONS: None. DRAINS: I and O catheterization. OPERATIVE FINDINGS: 1. Pre and post-sound 8-9 cm. 2. 740 mL normal saline, distention media with 60 mL fluid deficit. 3. Good hysteroscopic endometrial ablation by video with normal-appearing uterine cavity. DISPOSITION: To recovery room in good condition. DESCRIPTION OF OPERATIVE PROCEDURE: After obtaining proper informed consent, patient was taken to [facility] operating room where general endotracheal anesthesia achieved without difficulty. The patient was prepped and draped in dorsal lithotomy position in Leonides stirrups. Bladder was draining clear urine. Weighted speculum placed in vagina, cervix identified, grasped with tooth tenaculum, sounded to 8.5 to 9 cm, serially dilated up to appropriate level for Lynne ablation. Hysteroscopy confirmed a no rmal appearing cavity with tubal ostia identified bilaterally with no evidence of perforation. Curet tings were done with a sharp tooth curette and were sent for pathologic analysis. Lynne was introd uced at a setting of a depth of 5.5 cm considering the patient's cervical length. The cervical occlu emili balloon was blown up and cavity integrity test was green x2 cycles. Therapy cycle was carried o ut for 120 seconds. The device was removed and hysteroscope confirmed good ablation without fundal s paring tenaculum was removed and no bleeding was noted. Speculum removed. The patient awakened, ext ubated, and taken to recovery room in good condition. Fluid deficits noted.
[2018-01-05] MEDS ORDERED: Promethazine HCl 25 MG/ML VIAL ONE (13:29)
[2018-01-05] MEDS ORDERED: Lidocaine 1% PF 5 ML VIAL ONE (13:33)
[2018-01-05] MEDS ORDERED: Ondansetron PF 4 MG/2 ML Vial ONE (13:33)
[2018-01-05] MEDS ORDERED: PROPOFOL 200 MG/20 ML VIAL ONE (13:33)
[2018-01-05] MEDS ORDERED: HYDROcodone/Acetaminophen 5/325 mg Tablet ONE (14:41)
== END 2018-01-05 15:35 | disposition home or self-care (01) ==
LOC: SDC 10:46
PROVIDERS: ATTEND Obstetrics & Gynecology
PROC: 0UDB7ZX Extraction of Endometrium, Via Natural or Artificial Opening, Diagnostic (ICD-10-PCS; principal; 2018-01-05)
PROC: 0U5B8ZZ Destruction of Endometrium, Via Natural or Artificial Opening Endoscopic (ICD-10-PCS; principal; 2018-01-05)
DX: N92.0 Excessive and frequent menstruation with regular cycle (principal); D64.9 Anemia, unspecified; I48.91 Unspecified atrial fibrillation; E11.9 Type 2 diabetes mellitus without complications; I10 Essential (primary) hypertension; Z79.84 Long term (current) use of oral hypoglycemic drugs; Z79.899 Other long term (current) drug therapy
CPT/HCPCS: 88305; 96374; 96375; J2001; J2250; J2405; J2550; J2704; J3010

== ENCOUNTER 2018-05-25 08:00 | Outpatient (CLI) | payer OTHER ==
--- NOTE | 2018-05-25 15:34 | MMO ---
Bilateral MAMMO Bilat Screen [facility]DI[facility]. CLINICAL HISTORY: Patient is 47 years old and is seen for screening. The patient has no family history of breast cancer. The patient has no personal history of cancer. VIEWS: The views performed were: bilateral craniocaudal with tomosynthesis and bilateral mediolateral oblique with tomosynthesis. FILMS COMPARED: The present examination has been compared to a prior imaging study performed at [facility] on 05/20/2017. MAMMOGRAM FINDINGS: The breasts are heterogeneously dense, which could obscure a lesion on mammography. There are benign appearing calcifications seen in both breasts. There are no suspicious masses, calcifications or areas of architectural distortion. IMPRESSION: CALCIFICATIONS IN BOTH BREASTS ARE BENIGN. A ROUTINE FOLLOW-UP MAMMOGRAM IN 1 YEAR IS RECOMMENDED. THE RESULTS OF THIS EXAM WERE SENT TO THE PATIENT. ACR BI-RADS Category 2 - Benign finding MAMMOGRAPHY NOTE: 1. A negative mammogram report should not delay a biopsy if a dominant of clinically suspicious mass is present. 2. Approximately 10% to 15% of breast cancers are not detected by mammography. 3. Adenosis and dense breasts may obscure an underlying neoplasm.
== END 2018-05-25 08:01 | disposition home or self-care (01) ==
LOC: BICMAMMO 08:00
PROVIDERS: ATTEND Family Medicine
DX: Z12.31 Encounter for screening mammogram for malignant neoplasm of breast (principal); R92.1 Mammographic calcification found on diagnostic imaging of breast
CPT/HCPCS: 77063; 77067

== ENCOUNTER 2018-08-20 10:00 | Emergency (ER) | payer OTHER ==
[2018-08-20 10:25] LABS: Bilirubin Negative (Negative); Blood, Urine Negative (Negative); Clarity CLOUDY (Clear); Glucose, Urine (Dipstick) Negative (Negative); Leukocyte Small (Negative); Nitrite Negative (Negative); Protein, Urine (Dipstick) Negative (Neg-Trace); Urobilinogen 0.2 mg/dL (0.2-1.0); pH, Urine 5.5 (5.0-9.0)
[2018-08-20 10:27] LABS: Bacteria/HPF Rare-Few HPF (None Seen); Hyaline Casts/LPF 0-3 HYALINE CAST LPF (0-3 Hyaline); Squamous Epithelial 0-3 HPF (0-3); WBC/HPF 0-3 HPF (0-3)
[2018-08-20 10:37] LABS: Pregnancy Test - Urine (BHCG) Negative (Negative); Pregu Control Background? CLEAR/WHITE (CLR/WHITE); Pregu Control Bar Appear? YES (CONTROL BAR)
--- NOTE | 2018-08-20 11:24 | CT ---
CT Abdomen Pelvis WO Con History: [Abdominal pain] Comparison: CT abdomen and pelvis November 2017 Findings: Lung bases are clear. No pericardial effusion. Interpolar simple cysts which is endophytic of the right kidney is similar. Punctate nonobstructive r ight renal calculi. No hydroureteronephrosis. The left kidneys without obstructive uropathy. Previously described uterine mass not well seen on today's exam. Multiple small nabothian cysts. No free intraperitoneal gas or fluid. Mild diverticular disease sigmoid colon without active current inflammation. The appendix is visualized and is normal. Moderate facet arthrosis lower lumbar spine. Impression: 1. Nonobstructive right superior renal calyceal calculi. No hydroureteronephrosis nor secondary evide nce of a recently passed stone. 2. Simple right interpolar renal cyst. 3. Prior cholecystectomy. 4. Normal appendix. 5. Nabothian cysts. 6. Previously described uterine mass not well defined on today's exam.
[2018-08-20] MEDS ORDERED: HYDROcodone/Acetaminophen 5/325 mg Tablet ONE (11:26)
== END 2018-08-20 11:30 | disposition home or self-care (01) ==
LOC: ERS 10:00
DX: R10.9 Unspecified abdominal pain (principal); E11.9 Type 2 diabetes mellitus without complications; I48.91 Unspecified atrial fibrillation; E78.5 Hyperlipidemia, unspecified; I10 Essential (primary) hypertension; Z79.82 Long term (current) use of aspirin; Z79.899 Other long term (current) drug therapy
CPT/HCPCS: 74176; 81003; 81015; 81025

== ENCOUNTER 2018-10-10 11:06 | Outpatient (CLI) | payer OTHER ==
--- NOTE | 2018-10-10 12:22 | RAD ---
THORACIC SPINE 3 VIEWS: Date: 10/10/18 INDICATION: Back pain. COMPARISON: None. FINDINGS: There is moderate spondylosis of the thoracic spine. No acute fracture or subluxation is evident. IMPRESSION: Moderate spondylosis of the thoracic spine. POS: [facility]
== END 2018-10-10 11:07 | disposition home or self-care (01) ==
LOC: TBSIIMAG 11:06
PROVIDERS: ATTEND Neurological Surgery
DX: M54.6 Pain in thoracic spine (principal); M47.814 Spondylosis without myelopathy or radiculopathy, thoracic region
CPT/HCPCS: 72070

== ENCOUNTER 2021-05-08 12:48 | Outpatient (CLI) | payer BC | END 2021-05-08 12:49 | disposition home or self-care (01) | LOC: BICMAMMO 12:48 | PROVIDERS: ATTEND Family Medicine | DX: Z12.31 Encounter for screening mammogram for malignant neoplasm of breast (principal) | CPT/HCPCS: 77063; 77067 ==

== ENCOUNTER 2023-06-09 09:58 | Outpatient (CLI) | payer BC | END 2023-06-09 09:59 | disposition home or self-care (01) | LOC: BICMAMMO 09:58 | PROVIDERS: ATTEND Family Medicine | DX: Z12.31 Encounter for screening mammogram for malignant neoplasm of breast (principal) | CPT/HCPCS: 77063; 77067 ==